=== PATIENT | female | born 1970 | race Caucasian/White ===

== ENCOUNTER → 2017-01-25 | Outpatient (CLI) | payer BC ==
[~2017-01-25] MED LIST: EFF75 PO; PRLSR20 PO; VENL150C56 PO
--- NOTE | 2017-01-25 14:20 | DIAGNOSTIC IMAGING REPORT ---
HEAD CT NONCONTRAST CT DOSE: HISTORY: B CELL LYMPHOMA TECHNIQUE: Multiaxial CT images of the head were performed without the use of intravenous contrast. Comparison: None. Findings: The paranasal sinuses and mastoid air cells are clear. The calvarium and skull base are intact. The ventricles and sulci are within normal limits. There is no mass, hematoma, midline shift, or acute infarct. Impression: No acute intracranial abnormality. Electronically signed by: Gómez Cardenas M.D. 01/25/2017 2:19 PM Dictated Date/Time: 01/25/2017 2:18 PM
--- NOTE | 2017-01-25 14:28 | DIAGNOSTIC IMAGING REPORT ---
CT OF THE NECK WITHOUT CONTRAST CLINICAL HISTORY: Cutaneous B-cell lymphoma. COMPARISON STUDY: PET/CT March 15, 2016. FINDINGS: A minimally enlarged right level 2 cervical lymph node shown on image 132 of 353 is similar to PET/CT of March 15, 2016. This node measures 1.3 x 1.2 cm. No additional enlarged cervical lymph nodes are identified. The parotid and submandibular glands are normal. Skin thickening of the left cheek shown on image 90 of 353 is similar to PET/CT of March 15, 2016. No mucosal lesions are identified although sensitivity is diminished on this unenhanced exam. No suspicious osseous lesions are present. The chest will be reported separately. The head CT will also be reported separately. Prominence of the tonsillar tissues is unchanged since prior PET/CT. IMPRESSION: 1. No significant change in a mildly enlarged right level 2 cervical lymph node since PET/CT of March 15, 2016. 2. No change in prominence of the tonsillar tissues since prior PET/CT. 3. Mild skin thickening of the left cheek which is similar to PET/CT of March 15, 2016. Electronically signed by: Haja Hagen M.D. 01/25/2017 2:26 PM Dictated Date/Time: 01/25/2017 2:16 PM
--- NOTE | 2017-01-25 14:33 | DIAGNOSTIC IMAGING REPORT ---
CT SCAN OF THE CHEST, ABDOMEN, AND PELVIS WITHOUT IV CONTRAST CLINICAL HISTORY: Cutaneous B cell lymphoma. COMPARISON STUDY: PET/CT dated 03/15/2016. TECHNIQUE: Unenhanced CT scan of the chest, abdomen, and pelvis was performed from the thoracic inlet to the proximal femora. Images are reviewed in the axial, sagittal, and coronal planes. IV contrast was not administered for this examination as per the referring clinician. Note that the examination is significant suboptimal without IV contrast. Oral contrast was utilized. Automated dose control exposure was utilized. CT DOSE: 2106.39 mGy.cm FINDINGS: CHEST: Thyroid: Imaged portions of the thyroid gland are normal in size and attenuation. Thoracic aorta: The thoracic aorta is normal in caliber and demonstrates standard 3-vessel arch anatomy. Heart: The heart is normal in size and configuration, and without pericardial effusion. The pulmonary trunk is normal in caliber. Lungs and pleural spaces: Mild paraseptal emphysematous change is seen at the lung apices. There is no airspace consolidation or pleural effusion. The trachea and central airways are clear. There is a 10 mm focus of nodular pleural thickening in the right middle lobe along the minor fissure seen on axial image #125. A 3 mm right lower lobe pulmonary nodule is seen on image #167. Mediastinum: There is no mediastinal lymphadenopathy. Jeanette: Clear. Axillae: There is no axillary lymphadenopathy. Bony thorax: No lytic or blastic lesions are identified. ABDOMEN AND PELVIS: Liver: The unenhanced liver is normal in size, contour, and attenuation. There is no intrahepatic or ductal dilatation. Gallbladder: Unremarkable. Spleen: Normal in size and attenuation measure 11.7 cm in length. Pancreas: Unremarkable. Adrenal glands: Unremarkable. Kidneys: The unenhanced kidneys are normal in size and without hydronephrosis. No renal calculi are identified. There is no evidence of contour deforming renal mass. Abdominal vasculature: The abdominal aorta is normal in course and caliber noting scattered foci of atherosclerotic calcification. Bowel: The small bowel and colon are normal in course and caliber. The appendix is well-visualized and normal. Peritoneum: There is no intraperitoneal free air or abdominal ascites. A small fat-containing umbilical hernia is noted. Lymphadenopathy: None. Pelvic viscera: The bladder and uterus are normal as visualized. Small ovarian follicles are observed. A 2.5 cm dermoid is noted in the left ovary. There is trace free fluid in the cul-de-sac. Skeletal structures: There is mild lumbosacral spondylosis. There are bilateral pars defects at L3 and L4. Grade 1 anterolisthesis is seen at L4-L5. No lytic or blastic lesions are seen. IMPRESSION: 1. Suboptimal examination without IV contrast. 2. No pathologically enlarged lymph nodes are identified in the chest, abdomen, or pelvis. 3. The spleen is normal in size. 4. There is no airspace consolidation or pleural effusion. 5. A 10 mm focus of pleural thickening in the right middle lobe and a 3 mm right lower lobe pulmonary nodule are identified and likely unchanged from 03/15/2016. These are of low suspicion. Continued attention at follow-up is recommended. 6. 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 7. There is trace and likely physiologic free fluid in the cul-de-sac. 8. Additional findings as above. Electronically signed by: Hugh Elizabeth M.D. 01/25/2017 2:32 PM Dictated Date/Time: 01/25/2017 2:17 PM
== END | disposition home or self-care (01) ==
LOC: C.CTS 13:42
PROVIDERS: ATTEND Dermatology
DX: C85.10 Unspecified B-cell lymphoma, unspecified site (principal); R91.1 Solitary pulmonary nodule; R91.8 Other nonspecific abnormal finding of lung field; D27.1 Benign neoplasm of left ovary

== ENCOUNTER → 2017-03-21 | Outpatient (CLI) | payer BC ==
--- NOTE | 2017-03-21 09:39 | DIAGNOSTIC IMAGING REPORT ---
PET/CT HISTORY: LYMPHOMA TECHNIQUE: PET/CT was performed from the base of the skull through the pelvis following the intravenous administration of mCi of F18-FDG. Non-contrast CT imaging was performed over the same range without breath-hold for attenuation correction of PET images and anatomic correlation, but not for primary interpretation as it is not of standard diagnostic quality. CT DOSE: COMPARISON: Neck, chest, abdomen and pelvis CT 01/25/2017. PET CT 03/15/2016. FINDINGS: HEAD AND NECK: Symmetric FDG uptake within the brain. Symmetric moderate FDG uptake within the bilateral palatine tonsils which measure an SUV max of 5.9. This is slightly improved. There is a focal area of skin thickening within the left cheek which demonstrates low level FDG uptake with an SUV max of 1 which has improved. The cervical and bilateral intraparotid lymph nodes are not significantly changed in size. However, these demonstrate decreased FDG uptake compared to the prior study. The dominant right level 2 lymph node which measures 1.3 x 0.9 cm demonstrates an SUV max of 1.7, previously measuring an SUV max of 3. CHEST: There is no FDG-avid disease in the chest. There is no axillary, mediastinal, or hilar lymphadenopathy. There is no pleural or pericardial effusion. There is no air-space disease or suspicious lung nodule. A 9 mm somewhat nodular density within the right middle lobe on image 82 remains stable. ABDOMEN/PELVIS: Below the diaphragm, tracer is distributed physiologically in the gastrointestinal and genitourinary tracts. There is no significant lymphadenopathy and no FDG-avid disease. There is a 2.2 cm fat-containing left adnexal lesion. MUSCULOSKELETAL: There is no FDG-avid or destructive bone lesion. IMPRESSION: 1. A focal area of skin thickening within the left cheek remains unchanged in size but demonstrates decreased FDG uptake compared to the prior study. 2. A a few cervical lymph nodes remain stable in size but demonstrate decreased FDG uptake. 3. No abnormal FDG uptake seen within the chest, abdomen, or pelvis. 4. A 2.2 cm fat-containing left adnexal lesion. This is consistent with an ovarian dermoid. This remains unchanged. 5. Moderate FDG uptake within the bilateral palatine tonsils has also improved. Electronically signed by: Martínez Arciniega M.D. 03/21/2017 9:37 AM Dictated Date/Time: 03/21/2017 9:21 AM
== END | disposition home or self-care (01) ==
LOC: C.PET 06:44
PROVIDERS: ATTEND Internal Medicine Hematology & Oncology
DX: C83.09 Small cell B-cell lymphoma, extranodal and solid organ sites (principal)

== ENCOUNTER → 2017-06-22 | Outpatient (CLI) | payer BC ==
[2017-06-22 09:19] VITALS: BP 115/63; PULSE 88; TEMP 37; O2SAT 97
--- NOTE | 2017-06-22 10:16 | Radiation Oncology Follow-Up ---
Radiation Oncology Follow-Up Date of Visit Jun 22, 2017. Reason For Visit One-month follow-up Radiation Completion Date 05/14/17 Diagnosis (1) Cutaneous lymphoma Status: Resolved Onset Date: 01/18/2016 Location: left cheek Permanent Comment: Excision of lesion left cheek 01/19/2016 Atypical lymphocytic infiltrate concerning for B-cell lymphoma Status post punch biopsy of the right submental area 02/25/2016 Atypical lymphocytic infiltrate Recurrence with enlarging mass left cheek December 2016 Last Edited By: Tamar Schultz on Mar 07, 2017 11:36 History of Present Illness Ms. Roy presented last year with a swelling in the left cheek. She was seen by Dr. Brannon who felt clinically that this could be consistent with a cyst. He ordered an excisional biopsy which was performed on 01/18/2016. This revealed an atypical lymphocytic infiltrate which was of concern for an early B-cell lymphoma, particularly marginal zone lymphoma and less likely follicular lymphoma. The differential diagnosis less likely included a reactive lymphocytic infiltrate "pseudolymphoma". Histopathologic and immunophenotypic features could not reliably distinguish between a primary cutaneous lymphoma from a secondary cutaneous involvement by systemic disease appropriate workup was recommended. Accession #: [id number]. According to the patient shortly after the excision within 2 weeks the patient felt that the nodule had returned. On further examination and abnormality was noted on the skin of the right jaw line. A punch biopsy was recommended and performed on 02/24/2016. This also showed an atypical lymphocytic infiltrate. This infiltrate was less dense in comparison and the immunohistochemical pattern was more suggestive of a reactive lymphocytic infiltrate and a B-cell lymphoma. Nonetheless given the history of a possible developing B-cell lymphoma on the contralateral cheek the current lesion may represent an early developing lesion of a lymphoproliferative disorder. Continue close surveillance was recommended. Accession #: [id number]. Dr. Brannon ordered a staging PET/CT scan which was performed on 03/15/2016. This revealed symmetric intense FDG uptake within the bilateral palatine tonsils which measures an SUV max of 7.5. There was a 1.6 cm focal area of skin thickening within the left cheek which demonstrated low level FDG uptake with an SUV max of 2. There was also low level FDG uptake within a single left cervical lymph node that measures 0.7 cm and an SUV max of 2.4. There were 2 right anterior cervical chain lymph nodes demonstrating low-level FDG uptake measuring 1.3 and 1.0 cm respectively with an SUV max of 2 and 3 respectively. There was no FDG avid disease in the chest and there was no FDG avid lesions below the diaphragm. There were no FDG avid or destructive bone lesions. The patient continued to be followed closely by Dr. Brannon. On 03/17/2016 the patient returned to see him and felt the lesion was getting a little larger. His measurements revealed a 0.8 cm dermal nodule in the right jawline and a 1.5 cm dermal nodule on the left cheek. He noted a negative PET CT workup. He injected Kenalog into the 2 sites in April, May and July 2016. These were injected into both sites with response of both. The right jawline has since responded and is not returned. However in November 2016 he was noted to again have a 1.5 cm dusky red non-scaly papular on the scar the left cheek with no palpable cervical adenopathy. An additional Kenalog injection was performed. Patient returned in December when the lesion appeared larger measuring 2 cm with no other lesions or adenopathy appreciated. Insurance approval for repeat PET/CT scan was soft. They refused to approve a PET/CT scan. They would approve CT scans but without contrast. Therefore on 01/25/[address] of the neck without contrast, CT of the head without contrast, CT of the chest, abdomen and pelvis all without contrast. These lesions continued to show a minimally enlarged right level II cervical lymph node which was similar in size to the original PET/CT scan from 03/15/2016. This measured 1.3 x 1.2 cm. No additional enlarged cervical nodes were identified. Parotid and submandibular cans were normal. There was again noted skin thickening of the left cheek similar to the PET/CT findings of 2016. No mucosal lesions were identified although sensitivity was diminished due to lack of enhancement. CT of the head was unremarkable. CT of the chest showed a 10 mm focus of nodular pleural thickening in the right middle lobe along the minor fissure and a 3 mm right lower lobe pulmonary nodule with no significant or suspicious adenopathy or bony involvement. CT of the abdomen and pelvis showed no pathologically enlarged lymph nodes. A 2.5 cm left ovarian desmoid was again noted with the lack of sensitivity again noted due to a lack of IV contrast. The patient was last seen on 02/26/2017. On examination she was noted to have a 2.2 x 2.0 irregularly-shaped dusky red non-scaling plaque on the left cheek with remainder the exam unremarkable. Dr. Brannon was kind enough to ask us to see the patient for consideration of local radiation. After completing a PET/CT she return to our office and underwent radiation therapy. She received 3600 cGy completed 05/14/2017. Interim History She's been doing well over the past month. While on treatments the nodularity of the cheek resolved. She did develop erythema and hyperpigmentation. She is continued to treat this with natural care gel and Aquaphor. There was some dryness of the skin. Very minimal dry desquamation. She had no wet desquamation. She has occasional mild itching. She did have discomfort towards the angle of the jaw and below the ear at the end of treatment. This resolved without difficulty. She recently traveled to the [facility]. She used sunscreen and did not have any burning on the face. She is using makeup now. The makeup that she use does have an SPF included. She denies any difficulty with soreness of the mouth. No difficulty with chewing. Her appetite is good and weight is stable. Allergies Coded Allergies: Egg Yolk (Verified Allergy, Severe, nausea, hives, sweating, headache, ) Aspirin (Verified Allergy, Unknown, unkown , 03/07/17) allergic since a baby Ibuprofen (Verified Allergy, Unknown, hallucinate, 03/07/17) high doses give hallucinations Home Medications Scheduled Omeprazole (Prilosec), 20 MG PO DAILY Venlafaxine Hcl (Effexor), 75 MG PO HS Venlafaxine Hcl (Effexor Extended Rel), 150 MG PO HS Review of Systems Gastrointestinal: Symptoms: WNL Oral: Symptoms: No Problems Respiratory: Symptoms: WNL Urinary: Symptoms: WNL Skin: Symptoms: No Problems Additional Notes: She completed a distress management report and answered "no" to all questions. Physical Exam Vital Signs Date Time Temp Pulse Resp B/P (MAP) Pulse Ox O2 Delivery O2 Flow Rate FiO2 06/22/17 09:19 37.0 88 20 115/63 97 ECOG Performance Status: 0 Fatigue: None General Appearance: no apparent distress, + pertinent finding (there is resolving hyperpigmentation of the left side of the face. There is no dryness of the skin. No desquamation. There are no palpable masses. There is no cervical or preauricular adenopathy. There is no supraclavicular adenopathy.) Eyes: normal inspection, EOMI ENT: normal ENT inspection, hearing grossly normal Neck: no adenopathy, thyroid normal Respiratory/Chest: lungs clear, no respiratory distress, no accessory muscle use Cardiovascular: regular rate, rhythm, no gallop, no murmur Extremities: no pedal edema Neurologic/Psychiatric: no motor/sensory deficits, alert, normal mood/affect Skin: warm/dry Pain Management Pain Rating (0-10): 0 Pain Management Plan She has no pain therefore requires no pain management. Assessment & Plan Plan: The patient is also seen today by Dr. Buitrago. I recommended that she continue using Aquaphor at bedtime to help prevent skin dryness. We discussed the hyperpigmentation. This will take several months to resolve. She'll continue to use the makeup with SPF. She'll continue regular follow-up with her primary care physician as well as medical oncologist. Recheck scanning will be planned through medical oncology. We asked to return to our office in 6 months. Assessment & Plan (Attending) ADDENDUM: I agree with note created by Tamar Schultz PA-C. I reviewed the patient's chart and information with her. I have examined and evaluated the patient. I reviewed relevant clinical information and answered the patient's and /or family's questions. COMPOSITE WORKER Total Time In Follow-Up I spent 20 minutes speaking to the patient performing examination. I spent 15 minutes reviewing information in completing this note. Total Time (Attending) In Follow-Up I spent 15 minutes examining and counseling the patient. COMPOSITE WORKER Copy To Gage Thornton D.O.; Wu Bustillo MD
== END | disposition home or self-care (01) ==
LOC: C.ONC 09:16
PROVIDERS: ATTEND Physician Assistant Medical
DX: Z08 Encounter for follow-up examination after completed treatment for malignant neoplasm (principal); Z92.3 Personal history of irradiation; Z85.72 Personal history of non-Hodgkin lymphomas

== ENCOUNTER 2024-07-04 15:58 | Inpatient (IN) ==
[2024-07-04 17:02] LABS: Basophils # (auto) 0.05 K/uL (0.00-0.20); Basophils % (auto) 0.4 %; Eosinophils # (auto) 0.97 K/uL (0.00-0.50); Eosinophils % (auto) 8.6 %; Hematocrit (blood only) 44.6 % (37.0-47.0); Hemoglobin 15.3 g/dl (12.0-16.0); Immature Granulocytes # (auto) 0.02 K/uL (0.01-0.20); Immature Granulocytes % (auto) 0.2 %; Lymphocytes # (auto) 3.62 K/uL (1.20-3.40); Lymphocytes % (auto) 32.1 %; Mean Corpuscular Hemoglobin 30.2 pg (25.0-34.0); Mean Corpuscular Hgb Conc 34.3 g/dL (32.0-36.0); Monocytes % (auto) 6.2 %; Neutrophils # (auto) 5.93 K/uL (1.40-6.50); Neutrophils % (auto) 52.5 %; Platelet Count 343 K/uL (130-400); RDW Coefficient of Variation 12.5 % (11.5-14.5); RDW Standard Deviation 40.1 fL (36.4-46.3); Red Blood Count 5.07 M/uL (4.20-5.40); White Blood Count 11.29 K/ul (4.8-10.8)
--- NOTE | 2024-07-04 17:12 | XRay Report ---
EXAM: Radiograph of the Chest 1 View INDICATION: Chest pain. TECHNIQUE: Frontal view of the chest. COMPARISON: 05/25/2023 FINDINGS: Lungs and pleural spaces: No consolidation or pulmonary edema. No pleural effusion or pneumothorax. Heart: Shape and configuration within normal limits allowing for technique. Mediastinum: Normal contour. Bones/joints: Degenerative changes noted throughout the spine. No acute osseous abnormality seen. Soft tissues: No abnormality noted. No radiopaque foreign body noted. Vasculature: Stable ectatic aorta. Upper abdomen: No abnormality noted. IMPRESSION: No acute cardiopulmonary disease. ACT 112: Negative or not required by law. Electronically signed by Betsy Julio 07-04-2024 5:11 PM
[2024-07-04 17:19] LABS: Albumin Globulin Ratio 1.4 (0.9-2); Albumin Level 4.3 gm/dl (3.4-5.0); Bilirubin,Total 0.2 mg/dl (0.2-1.0); Creatinine Clr Calc Pharmacy 113.9 ml/min; Globulin 3.1 gm/dl (2.5-4.0); Total Protein 7.4 gm/dl (6.0-8.3)
[2024-07-04 17:25] LABS: Troponin I High Sensitivity 3.6 pg/ml (0-14)
[2024-07-04 17:28] LABS: Partial Thromboplastin Time 28 Seconds (21-31); Prothrombin Time 10.6 Seconds (9.0-12.0)
--- NOTE | 2024-07-04 18:32 | Emergency Department Note ---
Impression & Plan Acute exacerbation of chronic obstructive pulmonary disease, Hypoxia ED Provider Note NAME: SHERYL BAUTISTA AGE: 54 SEX: F : 1970 ARRIVES VIA: Walk-In INFORMANT: Patient, ED PROVIDER(S): Felipe Harrell DO CHIEF COMPLAINT: Shortness of breath HPI: The patient is a 54-year-old female who presented to the emergency department for shortness of breath. She does have a history of tobacco use. She uses an inhaler. She started having difficulty breathing and cough over the course of the last several days. She was treated with a Z-Delfino. She was not treated with steroids. She was also treated with an inhaler. The patient was getting better but started getting worse over the course of the last few days. She went to see her family doctor today and was found to have significant wheezing as well as shortness of breath. She was also hypoxic. She was sent to the emergency department for further evaluation. ROS: See above HPI for pertinent positives & negatives. A total of 10 systems reviewed and were otherwise negative. PAST MEDICAL HISTORY: See Below PAST SURGICAL HISTORY: See Below FAMILY HISTORY: See Below SOCIAL HISTORY: See Below HOME MEDICATIONS: See Below ALLERGIES: See Below VITALS: See Below PHYSICAL EXAMINATION: GENERAL: Patient is awake alert in no acute distress patient is resting comfortably and showing no signs of anxiety EYES: The conjunctivae are clear. The pupils are round and reactive. EARS, NOSE, MOUTH AND THROAT: The nose is without any evidence of any deformity. Mucous membranes are moist. Tongue is midline. NECK: The neck is nontender and supple. RESPIRATORY: Diminished breath sounds are noted bilaterally. There is expiratory wheezing in both nielsen. There was conversational dyspnea as well as tachypnea noted. CARDIOVASCULAR: Regular rate and rhythm noted there no murmurs rubs or gallops normal S1 normal S2. GASTROINTESTINAL: The abdomen is soft. Abdomen is nontender. MUSCULOSKELETAL/EXTREMITIES: There is no evidence of gross deformity full range of motion is noted in the hips and shoulders. SKIN: There is no obvious evidence of any rash. There are no petechiae, pallor or cyanosis noted. NEUROLOGIC: Patient is awake alert and oriented x3 MEDICAL DECISION MAKING: The patient is a 54-year-old female who presented to the emergency department for an evaluation of difficulty breathing. The patient does have a history of tobacco use. The patient was treated with bronchodilator therapy in the emergency department. I discussed the patient's laboratory and radiographic studies with her. Given her vital signs as well as her other findings I do not feel that she would be a good candidate for outpatient management. For this reason I discussed her condition with the on-call [facility] hospitalist. They have agreed to evaluate the patient in the emergency department for further management and disposition. Triage Nursing notes reviewed. Prior medical records reviewed Vital Signs: reviewed and remarkable for elevated blood pressure and initial hypoxia. Differential diagnosis: Reactive airway disease, pneumonia, pneumothorax, COPD, CHF, infections, cardiac ischemia, pulmonary embolism, musculoskeletal, gastrointestinal, as well as other pathologies. ER treatment provided: See below Diagnostics interpreted by me: ECG: EKG was obtained in the emergency department. My interpretation is normal sinus rhythm at 90 bpm. There is no ectopy. There is no acute ST segment abnormalities noted. This was compared to a tracing from July 13, 2022. No changes were noted. Cardiac Monitoring: An order was placed for continuous cardiac monitoring. The monitor shows a rate of 84/min with sinus rhythm. Laboratory studies: As stated above and show below. Imaging studies: See below. Radiographic imaging was reviewed by myself Consultation(s): I discussed this case with Dr. Sanchez who is on-call for the [facility] group. 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) Encounter for pre-operative examination Cyst of skin Symptomatic cholelithiasis Medical History Hyperlipemia Per records Morbid obesity History of COVID-19 08/02/2020 loss of taste/smell, fatigue; resolved White coat syndrome without hypertension Fear of needles Acid reflux B-cell lymphoma dx 2018; s/p radiation Anxiety Surgical History Hx laparoscopic cholecystectomy (07/26/22) Robotic-Assisted Laparoscopic Cholecystectomy(Not Applicable) - Dimitris Schneider DO Hx of colonoscopy 2020 History of wisdom tooth extraction History of endometrial ablation 2012 History of bilateral breast reduction surgery 2017 History of tubal ligation 2002 Family History Father Cancer Heart disease Hypertension Diabetes Other No family history of adverse response to anesthesia No family history of bleeding disorder Social History Smoking Status: Current every day smoker Tobacco Type: Cigarettes packs per day: 0.5; Cigarettes Per Day: 20 a day (advised); Second Hand Exposure: No; Do You Dip or Chew Tobacco: No; Hx Alcohol Use: Yes Alcohol type: beer and hard liquor Alcohol Intake Frequency Comment: socially Hx Substance Use: No Preferred Language: Tongan Communication Ability: Effective Track Grinder Operator Required: No Beliefs That Will Affect Care: None marital status: Current Living Situation: Spouse current occupational status: employed 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 How many Children do You have: 2 Feels Safe at Home: Yes during the past year weight has: decreased > 10 lbs Assistive Devices: Glasses Allergies Allergies Allergy/AdvReac Type Severity Reaction Status Date / Time egg yolk Allergy Severe Nausea, Verified 07/04/24 18:39 hives, sweating, headache aspirin Allergy Intermediate Hives Verified 07/04/24 18:39 ibuprofen AdvReac Intermediate Hallucinations Verified 07/04/24 18:39 (with high doses) Home Meds Home Medications Medication Instructions Recorded Confirmed omeprazole 20 mg capsule,delayed 20 mg PO HS 04/30/19 07/04/24 release meloxicam 15 mg tablet 15 mg PO HS 07/04/24 07/04/24 tirzepatide (weight loss) 2.5 2.5 mg subcut WK 07/04/24 07/04/24 mg/0.5 mL subcutaneous pen injector (Zepbound) venlafaxine 150 mg 150 mg PO HS 07/04/24 07/04/24 capsule,extended release 24 hr venlafaxine 75 mg capsule,extended 75 mg PO HS 07/04/24 07/04/24 release 24 hr Results & Data (ED) Vital Signs Vital Signs - 24 hr 07/04/24 16:20 07/04/24 17:55 07/04/24 17:55 Temperature 36.8 C Temperature Source Temporal Artery Scan Pulse Rate 86 Pulse Rate [Apical] 93 H Respiratory Rate 18 21 Respiratory Effort / Characteristics Non-Labored Spontaneous SOB on Exertion Respiratory Depth Normal Respiratory Pattern Tachypnea Blood Pressure 176/107 H Blood Pressure [Left Arm] 161/108 H Blood Pressure Mean 130 Blood Pressure Mean [Left Arm] 125 Pulse Oximetry 92 90 90 Oxygen Delivery Method Room Air Room Air Room Air Oxygen Flow Rate Sepsis New/Unexplained Change in Mental Status No Sepsis Action Taken by Nursing No Action Required Oxygen Flow Rate - Titration Pulse Oximetry Post Tiitration 07/04/24 17:55 07/04/24 18:04 07/04/24 18:05 Temperature Temperature Source Pulse Rate 84 Pulse Rate [Apical] Respiratory Rate 18 Respiratory Effort / Characteristics Respiratory Depth Respiratory Pattern Blood Pressure Blood Pressure [Left Arm] Blood Pressure Mean Blood Pressure Mean [Left Arm] Pulse Oximetry 89 L 91 Oxygen Delivery Method Room Air Nasal Cannula Nasal Cannula Oxygen Flow Rate 1 Sepsis New/Unexplained Change in Mental Status Sepsis Action Taken by Nursing Oxygen Flow Rate - Titration 1 1 Pulse Oximetry Post Tiitration 92 07/04/24 18:13 07/04/24 19:00 Temperature Temperature Source Pulse Rate 90 Pulse Rate [Apical] 74 Respiratory Rate 18 Respiratory Effort / Characteristics Non-Labored Spontaneous Respiratory Depth Normal Respiratory Pattern Blood Pressure Blood Pressure [Left Arm] 163/103 H Blood Pressure Mean Blood Pressure Mean [Left Arm] 123 Pulse Oximetry 94 Oxygen Delivery Method Nasal Cannula Oxygen Flow Rate 2 Sepsis New/Unexplained Change in Mental Status Sepsis Action Taken by Nursing Oxygen Flow Rate - Titration Pulse Oximetry Post Tiitration Home Medications Current Medication List: was personally reviewed by me Laboratory Data Attestation: I reviewed the patient's lab results. 07/04/24 16:48 07/04/24 16:48 Lab Results 07/04/24 07/04/24 Range/Units 16:48 18:53 WBC 11.29 H (4.8-10.8) K/ul RBC 5.07 (4.20-5.40) M/uL Hgb 15.3 (12.0-16.0) g/dl Hct 44.6 (37.0-47.0) % MCV 88.0 (80.0-100.0) fL MCH 30.2 (25.0-34.0) pg MCHC 34.3 (32.0-36.0) g/dL RDW Std Deviation 40.1 (36.4-46.3) fL RDW Coeff of Jorge 12.5 (11.5-14.5) % Plt Count 343 (130-400) K/uL MPV 10.0 (9.4-12.4) fL Immature Gran % (Auto) 0.2 % Neut % (Auto) 52.5 % Lymph % (Auto) 32.1 % [place] % (Auto) 6.2 % Eos % (Auto) 8.6 % Baso % (Auto) 0.4 % Neut # (Auto) 5.93 (1.40-6.50) K/uL Lymph # (Auto) 3.62 H (1.20-3.40) K/uL [place] # (Auto) 0.70 H (0.11-0.59) K/uL Eos # (Auto) 0.97 H (0.00-0.50) K/uL Baso # (Auto) 0.05 (0.00-0.20) K/uL Immature Gran # (Auto) 0.02 (0.01-0.20) K/uL PT 10.6 (9.0-12.0) Seconds INR 1.0 (0.9-1.1) APTT 28 (21-31) Seconds PTT Ratio 1.0 Sodium 139 (136-145) mmol/L Potassium 4.0 (3.5-5.1) mmol/L Chloride 104 (98-107) mmol/L Carbon Dioxide 29 (21-32) mmol/L Anion Gap 6 (3-11) BUN 12 (6-23) mg/dl Creatinine 0.63 (0.6-1.2) mg/dl Est Cr Clr Drug Dosing 113.9 ml/min eGFR 106.67 BUN/Creatinine Ratio 19.0 (10-20) Glucose 90 (70-99(Fasting)) mg/dl Calcium 10.0 (8.6-10.3) mg/dl Total Bilirubin 0.2 (0.2-1.0) mg/dl AST 19 (13-39) U/L ALT 27 (7-52) U/L Alkaline Phosphatase 51 (34-104) U/L Troponin I High Sens 3.6 (0-14) pg/ml Total Protein 7.4 (6.0-8.3) gm/dl Albumin 4.3 (3.4-5.0) gm/dl Globulin 3.1 (2.5-4.0) gm/dl Albumin/Globulin Ratio 1.4 (0.9-2) Adenovirus (PCR) Not Detected (NotDetected) B. pertussis DNA (PCR) Not Detected (NotDetected) B.parapertussis DNA PCR Not Detected (NotDetected) C. pneumoniae DNA (PCR) Not Detected (NotDetected) Coronavirus OC43 (PCR) Not Detected (NotDetected) Coronavirus HKU1 (PCR) Not Detected (NotDetected) Coronavirus 229E (PCR) Not Detected (NotDetected) SARS-CoV-2 (PCR) Not Detected (NotDetected) Coronavirus NL63 (PCR) Not Detected (NotDetected) Human Metapneumovir PCR Not Detected (NotDetected) Influenza Type A (PCR) Not Detected (NotDetected) Influenza Type B (PCR) Not Detected (NotDetected) M. pneumoniae (PCR) Not Detected (NotDetected) Parainfluenza 1 (PCR) Not Detected (NotDetected) Parainfluenza 2 (PCR) Not Detected (NotDetected) Parainfluenza 3 (PCR) Not Detected (NotDetected) Parainfluenza 4 (PCR) Not Detected (NotDetected) RSV (PCR) Not Detected (NotDetected) Entero/Rhino (PCR) Not Detected (NotDetected) Administered Medications Budesonide (Budesonide 0.5 Mg/2 Ml Vial (Pulmicort)) 0.5 mg NEB BIDR [facility] Stop: 08/03/24 22:01 Last Admin: 07/04/24 22:37 Dose: 0.5 mg Documented By: JOLIE Formoterol Fumarate (Formoterol 20 Mcg/2 Ml Vial) 20 mcg NEB BIDR [facility] Stop: 08/03/24 22:01 Last Admin: 07/04/24 22:37 Dose: 20 mcg Documented By: JOLIE Guaifenesin (Guaifenesin 600 Mg Tabcr) 1,200 mg PO Q12 [facility] Stop: 08/03/24 22:01 Last Admin: 07/04/24 23:00 Dose: 1,200 mg Documented By: CLAIRE Meloxicam (Meloxicam 7.5 Mg Tab) 15 mg PO HS [facility] Stop: 08/03/24 22:01 Last Admin: 07/04/24 23:00 Dose: 15 mg Documented By: CLAIRE Pantoprazole Sodium (Pantoprazole 40 Mg Tab) 40 mg PO [facility] Stop: 08/03/24 22:14 Last Admin: 07/04/24 23:00 Dose: 40 mg Documented By: CLAIRE Venlafaxine HCl (Venlafaxine Hcl Xr 75 Mg Capxr) 75 mg PO [facility] Stop: 08/03/24 22:01 Last Admin: 07/04/24 23:00 Dose: 75 mg Documented By: CLAIRE Venlafaxine HCl (Venlafaxine Hcl Xr 150 Mg Capxr) 150 mg PO [facility] Stop: 08/03/24 22:01 Last Admin: 07/04/24 23:00 Dose: 150 mg Documented By: CLAIRE Discontinued Medications Albuterol (Albut/Ipratrop 3mg/0.5mg Neb 3 Ml Vial) 3 ml NEB NOW STA; Protocol Stop: 07/04/24 18:13 Last Admin: 07/04/24 18:47 Dose: 3 ml Documented By: SRL Dextromethorphan Polymer Complex (Dextromethorphan Polymr Complx 30 Mg/5 Ml Udp) 30 mg PO ONE ONE Stop: 07/04/24 20:45 Last Admin: 07/04/24 21:35 Dose: 30 mg Documented By: SAMANTHA Methylprednisolone (Methylprednisolone 125 Mg/2 Ml Vial) 125 mg IV NOW STA Stop: 07/04/24 18:13 Last Admin: 07/04/24 18:47 Dose: 125 mg Documented By: SRL Imaging Data Attestation: I personally reviewed and interpreted this imaging study as follows: My Impression: 1 view chest x-ray was obtained in the emergency department. My interpretation is no free air or definite infiltrate, final report below. Radiologist's Impression: Chest X-Ray 07/04/24 16:25 EXAM: Radiograph of the Chest 1 View INDICATION: Chest pain. TECHNIQUE: Frontal view of the chest. COMPARISON: 05/25/2023 FINDINGS: Lungs and pleural spaces: No consolidation or pulmonary edema. No pleural effusion or pneumothorax. Heart: Shape and configuration within normal limits allowing for technique. Mediastinum: Normal contour. Bones/joints: Degenerative changes noted throughout the spine. No acute osseous abnormality seen. Soft tissues: No abnormality noted. No radiopaque foreign body noted. Vasculature: Stable ectatic aorta. Upper abdomen: No abnormality noted. IMPRESSION: No acute cardiopulmonary disease. ACT 112: Negative or not required by law. Electronically signed by Betsy Julio 07-04-2024 5:11 PM Discharge Plan Visit Data Chief Complaint: Testing Request Stated Complaint: CHEST XRAY, O2 LOW ED Provider: Felipe Harrell Discharge Problem: Acute exacerbation of chronic obstructive pulmonary disease, Hypoxia Patient Disposition: Being Evaluated by Hospitalist
[2024-07-04] MEDS: ALBUT/IPRATROP 3MG/0.5MG NEB 3 ML VIAL NEB STA (18:47)
[2024-07-04] MEDS: methylPREDNISolone 125 MG/2 ML VIAL IV STA (18:47)
[2024-07-04 20:00] LABS: Adenovirus PCR Not Detected (NotDetected); Bordetella parapertussis PCR Not Detected (NotDetected); Bordetella pertussis PCR Not Detected (NotDetected); Chlamydia pneumoniae PCR Not Detected (NotDetected); Coronavirus 229E PCR Not Detected (NotDetected); Coronavirus CoV-2 (COVID19)PCR Not Detected (NotDetected); Coronavirus HKU1 PCR Not Detected (NotDetected); Coronavirus NL63 PCR Not Detected (NotDetected); Coronavirus OC43PCR Not Detected (NotDetected); Human Metapneumovirus PCR Not Detected (NotDetected); Influenza A PCR Not Detected (NotDetected); Influenza B PCR Not Detected (NotDetected); Mycoplasma pneumoniae PCR Not Detected (NotDetected); Parainfluenza Virus 1 PCR Not Detected (NotDetected); Parainfluenza Virus 2 PCR Not Detected (NotDetected); Parainfluenza Virus 3 PCR Not Detected (NotDetected); Parainfluenza Virus 4 PCR Not Detected (NotDetected); Respiratory Syncytial VirusPCR Not Detected (NotDetected); Rhinovirus/Enterovirus PCR Not Detected (NotDetected)
--- NOTE | 2024-07-04 20:39 | History & Physical Report ---
Date of Service July 04, 2024 Assessment & Plan (1) Reactive airway disease with acute exacerbation: Plan: Suspect underlying COPD with smoking history, encouraged smoking cessation Biofire negative although suspect initial precipitating event was viral, no pneumonia on CXR DuoNeb q4hWA Formoterol/budesonide nebs BID Solu-medrol 40mg IV daily Guaifenesin 1200mg PO BID Dextromethorphan PRN Antibiotics deferred for COPD exacerbation given recent course Sputum culture Do not anticipate needing repeat labs as long as she continues to improve (2) Hypoxia: Plan: Aim O2 sats > 90% Secondary to reactive airway disease as above Plan GERD - switch omeprazole for pantoprazole VTE Prophylaxis - low risk for chemical prophylaxis, SCDs ordered Diet - regular Disposition - admit to med/surg Admission and Anticipated Discharge Date Admission Date: July 04, 2024 History of Present Illness Chief Complaint: Shortness of breath Primary Care Provider: Neva Cooleylionel Roy is a 54 year old female who presents to the ER with shortness of breath She reports her initial symptoms started on July 21 with gener alized feeling unwell, sneezing, nasal congestion and productive cough with clear sputum. She felt generally terrible for about three days and went to her PCP office on . At that time she was not having the shortness of breath, more coughing and congestion. She was prescribed Augmentin, azithromycin (both antibiotics now finished), albuterol and tesslon perles. She felt better with these treatments initially. Her shortness of breath started yesterday and having increased problems sleeping. This became progressively worse despite the inhaler which was only mildly effective and short lived helped. She went to her follow up appointment today and was hypoxic therefore sent to the ER. She reports feeling much improved after steroids and nebulizers given in the ER and her chest feels much less tight and she can move air again. She is a current smoker on half a pack a day of cigarettes but no prior history of asthma or COPD. No chest pain, no recent fever or chills, nasal congestion coming and going, no sinus pain. Allergies Allergy/AdvReac Type Severity Reaction Status Date / Time egg yolk Allergy Severe Nausea, Verified 07/04/24 18:39 hives, sweating, headache aspirin Allergy Intermediate Hives Verified 07/04/24 18:39 ibuprofen AdvReac Intermediate Hallucinations Verified 07/04/24 18:39 (with high doses) Home Medications Medication Instructions Recorded Confirmed Type omeprazole 20 mg capsule,delayed 20 mg PO HS 04/30/19 07/04/24 History release meloxicam 15 mg tablet 15 mg PO HS 07/04/24 07/04/24 History tirzepatide (weight loss) 2.5 2.5 mg subcut WK 07/04/24 07/04/24 History mg/0.5 mL subcutaneous pen injector (Zepbound) venlafaxine 150 mg 150 mg PO HS 07/04/24 07/04/24 History capsule,extended release 24 hr venlafaxine 75 mg capsule,extended 75 mg PO HS 07/04/24 07/04/24 History release 24 hr Past Med/Surg History Problem List (Updated 07/04/24 @ 23:14 by Kaiden Sanchez MD) Reactive airway disease with acute exacerbation Hypoxia (Acute) Acute exacerbation of chronic obstructive pulmonary disease (Acute) Status post laparoscopic cholecystectomy 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) Encounter for pre-operative examination Cyst of skin Symptomatic cholelithiasis Medical History Hyperlipemia Per records Morbid obesity History of COVID-19 08/02/2020 loss of taste/smell, fatigue; resolved White coat syndrome without hypertension Fear of needles Acid reflux B-cell lymphoma dx 2018; s/p radiation Anxiety Surgical History Hx laparoscopic cholecystectomy (07/26/22) Robotic-Assisted Laparoscopic Cholecystectomy(Not Applicable) - Dimitris Schneider DO Hx of colonoscopy 2020 History of wisdom tooth extraction History of endometrial ablation 2012 History of bilateral breast reduction surgery 2018 History of tubal ligation 2002 Family History Father Cancer Heart disease Hypertension Diabetes Other No family history of adverse response to anesthesia No family history of bleeding disorder Social History Smoking Status: Current every day smoker Tobacco Type: Cigarettes packs per day: 0.5; Cigarettes Per Day: 1/2 pack; Second Hand Exposure: No; Do You Dip or Chew Tobacco: No; Tobacco Cessation Education Requested by Patient: No Hx Alcohol Use: Yes Alcohol type: beer Alcohol Intake Frequency Comment: socially Hx Substance Use: No Preferred Language: Divehi Communication Ability: Effective Process Equipment Operator Required: No Beliefs That Will Affect Care: None marital status: Current Living Situation: Spouse current occupational status: employed current occupation: AUTOMOTIVE GLASS MECHANIC How many Children do You have: 2 Feels Safe at Home: Yes Safety Concerns: Feels Safe At This Time during the past year weight has: decreased > 10 lbs Assistive Devices: Glasses Review of Systems Review of Systems: All systems reviewed & are unremarkable except as noted in HPI & below Physical Exam Constitutional: WD/WN, vitals as above Eyes: + anicteric sclerae; normal pupil size Respiratory: normal respiratory effort, + prolonged expiratory phase and + audible wheezes; no respiratory distress Auscultation: + wheezes (expiratory ); no diminished lung sounds, no crackles and no rhonchi Cardiovascular: RRR, no murmur, no edema Gastrointestinal (Abdomen): normal bowel sounds, soft, nontender, no hepatosplenomegaly Skin: no rashes, warm and dry Psychiatric: A+Ox3, euthymic affect Results & Data Results & Data Vital Signs (Past 12 Hours) Vital Signs Temp Pulse Pulse Resp BP BP Pulse Ox 07/04/24 19:00 74 18 163/103 H 94 07/04/24 18:13 90 07/04/24 18:05 07/04/24 18:04 91 07/04/24 17:55 84 18 89 L 07/04/24 17:55 90 07/04/24 17:55 93 H 21 161/108 H 90 07/04/24 16:20 36.8 C 86 18 176/107 H 92 O2 Del Method O2 Flow Rate 07/04/24 19:00 Nasal Cannula 2 07/04/24 18:13 07/04/24 18:05 Nasal Cannula 1 07/04/24 18:04 Nasal Cannula 07/04/24 17:55 Room Air 07/04/24 17:55 Room Air 07/04/24 17:55 Room Air 07/04/24 16:20 Room Air Laboratory Results Abnormal lab results 07/04/24 Range/Units 16:48 WBC 11.29 H (4.8-10.8) K/ul Lymph # (Auto) 3.62 H (1.20-3.40) K/uL [place] # (Auto) 0.70 H (0.11-0.59) K/uL Eos # (Auto) 0.97 H (0.00-0.50) K/uL Diagnostic Findings Radiograph of the Chest 1 View INDICATION: Chest pain. TECHNIQUE: Frontal view of the chest. COMPARISON: 05/25/2023 FINDINGS: Lungs and pleural spaces: No consolidation or pulmonary edema. No pleural effusion or pneumothorax. Heart: Shape and configuration within normal limits allowing for technique. Mediastinum: Normal contour. Bones/joints: Degenerative changes noted throughout the spine. No acute osseous abnormality seen. Soft tissues: No abnormality noted. No radiopaque foreign body noted. Vasculature: Stable ectatic aorta. Upper abdomen: No abnormality noted. IMPRESSION: No acute cardiopulmonary disease. Medications Administered ER Medications Given: Solu-medrol 125mg IV Duoneb 3ml NEB ECG Rate (beats per minute): 90 Rhythm: normal sinus Findings: no acute ischemic change Comparison ECG Date: from (July 13, 2022) Change: no significant change Code Status & VTE Plan Code Status Full VTE Prophylaxis Plan VTE Prophylaxis will be ordered: Yes PG Care Time/CCT Total # of Minutes Spent Total Time Spent with Patient: Total time spent is greater than 50% in coordination of care (as documented) at patient's floor/unit and/or counseling patient: Coding Level of Care Code 57951 INT INP/OBS CARE 2/55MIN Diagnoses Reactive airway disease with acute exacerbation J45.901 Hypoxia R09.02
[2024-07-04] MEDS: DEXTROMETHORPHAN POLYMR COMPLX 30 MG/5 ML UDP PO ONE (21:35)
[2024-07-04] MEDS ORDERED: ACETAMINOPHEN 325 MG TAB PO PRN (22:02)
[2024-07-04] MEDS: BUDESONIDE 0.5 MG/2 ML VIAL (PULMICORT) NEB SCH (22:37)
[2024-07-04] MEDS: FORMOTEROL 20 MCG/2 ML VIAL NEB SCH (22:37)
[2024-07-04] MEDS: guaiFENesin 600 MG TABCR PO SCH (23:00)
[2024-07-04] MEDS: MELOXICAM 7.5 MG TAB PO SCH (23:00)
[2024-07-04] MEDS: PANTOprazole 40 MG TAB PO SCH (23:00)
[2024-07-04] MEDS: VENLAFAXINE HCL XR 75 MG CAPXR PO SCH (23:00)
[2024-07-04] MEDS: VENLAFAXINE HCL XR 150 MG CAPXR PO SCH (23:00)
[2024-07-05] MEDS: DEXTROMETHORPHAN POLYMR COMPLX 30 MG/5 ML UDP PO PRN (02:56)
[2024-07-05] MEDS: ALBUT/IPRATROP 3MG/0.5MG NEB 3 ML VIAL NEB SCH (07:09)
[2024-07-05] MEDS: methylPREDNISolone 40 MG in SYRINGE 0 ML IV SCH ×2 (08:17→21:20)
[2024-07-05] MEDS ORDERED: methylPREDNISolone 125 MG/2 ML VIAL IV SCH (09:00)
--- NOTE | 2024-07-05 12:11 | Hospitalist Progress Note ---
Date of Service July 05, 2024 Assessment & Plan (1) Reactive airway disease with acute exacerbation: Plan: Suspect underlying COPD with smoking history, encouraged smoking cessation Biofire negative although suspect initial precipitating event was viral, no pneumonia on CXR Ambulatory pulse ox significant below goal DuoNeb q4hWA Formoterol/budesonide nebs BID Increase Solu-medrol 40mg IV BID Guaifenesin 1200mg PO BID Dextromethorphan PRN Codeine syrup PRN Start azithromycin for anti inflammatory effect Sputum culture pending Do not anticipate needing repeat labs as long as she continues to improve (2) Hypoxia: Plan: Aim O2 sats > 90% Secondary to reactive airway disease as above Plan GERD - switch omeprazole for pantoprazole VTE Prophylaxis - low risk for chemical prophylaxis, SCDs ordered Diet - regular Disposition - admit to med/surg Admission and Anticipated Discharge Date Admission Date: July 04, 2024 Supervising Physician Co-Signing Physician Notes Attending Physician Supervision Note: I independently interviewed and examined the patient and verified the ventura history and physical, reviewed labs and image studies and agree with findings and care plan noted above. RAD with acute exacerbation - continue current meds. anticipate d/c home in am. Subjective Patient seen and evaluated at bedside this morning. No acute events overnight. Remains on 3L NC, satting low 90s. No acute complaints, eager to go home. Review of Systems Review of Systems: reviewed, per HPI Physical Exam Physical Exam: Constitutional: well-appearing, no acute distress HEENT: NCAT, no conjunctival injection CV: regular rhythm, no murmur appreciated, extremities well-perfused, no LE edema Resp: diffuse inspiratory and expiratory wheeze in b/l lung nielsen, no increased WOB GI: nondistended MSK: no gross deformities appreciated Skin: warm, dry, no rash appreciated Neuro: alert, oriented, no focal neurologic deficit appreciated Results & Data Results & Data Vital Signs (Past 12 Hours) Vital Signs Temp Pulse Pulse Pulse Resp Resp BP 07/05/24 11:48 88 24 07/05/24 10:40 88 18 07/05/24 09:00 07/05/24 07:10 76 18 07/05/24 07:04 36.4 C L 74 17 157/97 H Pulse Ox Pulse Ox O2 Del Method O2 Flow Rate 07/05/24 11:48 83 L Room Air 07/05/24 10:40 92 Nasal Cannula 3 07/05/24 09:00 Nasal Cannula 2 07/05/24 07:10 93 Nasal Cannula 3 07/05/24 07:04 95 Nasal Cannula 2 Resident Activity Tracking Resident Involvement: Resident Care Provided Care Provided: Adult Hospital Medicine
[2024-07-05] MEDS: AZITHROMYCIN 250 MG TAB PO SCH (12:38)
[2024-07-05 19:42] VITALS: TEMP 97.9
--- OUTSIDE RECORDS SUMMARY | 2024-07-06 06:20 | External Medical Summary | Continuity of Care Document ---
Author Name Unknown Organization [facility] [address] [id number] Address [address] [place] [id number] Care Team Providers Care Pellet Preparation Operator Name Role Phone Neva Jones Primary Care Physician [phone] [facility] [id number] Date(s): 04/24/24 - 04/24/24 [facility] [place] [address] [facility] [address] [address] Encounter Diagnosis Hallux valgus, bilateral(Discharge Diagnosis) - 04/24/24 Hallux rigidus, bilateral(Discharge Diagnosis) - 04/24/24 Pain in both feet(Discharge Diagnosis) - 04/24/24 Arthritis of right midfoot(Discharge Diagnosis) - 04/24/24 Discharge Disposition: Home or Self Care Attending Physician: LIBERTY Morales Christina L Allergies, Adverse Reactions, Alerts Substance Criticality Severity Reaction Reaction Severity Status aspirin unknown Active Motrin 1 hallucinations Activ e eggs 2 hives Active 1high dose 2egg yolks Assessment and Plan Extracted from: Title:Orthopaedics Office Visit Note Author:Yakov Arreola DPM, Christina L Date:04/24/24 1.Hallux valgus, bilateral Discussed with patient today that for conservative treatment I recommendshe stop her ibuprofen, she notes in her allergies Motrin at high doses causes hallucinationshowever her on physical exam she stated to meshe takes 2 ibuprofen every morning I would like her to stop that and begin taking her meloxicam which was prescribed today. Recommend ultrasound-guided injection for the right foot at the first MPJand thefirst or second tarsometatarsal joint ordered today. Recommend orthotics to stabilize not just the feet but also the back and hip issueswe will check insurance coverage and consult placed today. We discussedpossible surgical intervention if needed if not improving with conservative treatmentof a cheilectomy versus a first MPJ fusiondefer at this time. Patient had no further questions or concerns x-rays reviewedrecommend follow- upin 2 to 3 months. I spent 6 minute planning including prepping note and chart review. I spent 31 minute [id number] interaction with patient addressing issuesdiscussed in visit today. I spent 8 minute time in postop visitplanning including note finishing in depart process. Total time spent on patient visit 45 minutes. 2.Hallux rigidus, bilateral 3.Pain in both feet 4.Arthritis of right midfoot Immunizations Given and Recorded Vaccine Date Status Refusal Reason influenza virus vaccine, inactivated 04/27/22 Give n influenza virus vaccine, inactivated 07/29/21 Give n influenza virus vaccine, inactivated 04/23/20 Give n influenza virus vaccine, inactivated 04/10/19 Give n influenza virus vaccine, inactivated 04/29/18 Give n pneumococcal 13-valent vaccine 04/30/19 Given pneumococcal 13-valent vaccine 1 04/10/19 Given pneumococcal 23-valent vaccine 04/29/18 Given 1Patient Tolerance: [04/14/2019 10:31] This vaccination was not given. Medications meloxicam 15 mg oral tablet Start: 04/24/24 8:36:00 AM EDT, 1 tab, PO, Daily, Disp# 90 tab, Refills: 3, Pharmacy: [id number] Start Date: 04/24/24 Stop Date: 04/19/25 Status: Ordered omeprazole 20 mg oral delayed release capsule Start: 03/28/24 1:10:00 PM EDT, 1 cap, PO, Daily, Disp# 90 cap, Refills: 2, Pharmacy: [id number] Start Date: 03/28/24 Status: Ordered varenicline 1 mg oral tablet Start: 06/27/23 1:33:00 PM EST, 1 tab, PO, bid, Disp# 168 tab, Refills: 0, Pharmacy: [id number] Start Date: 06/27/23 Stop Date: 09/19/23 Status: Ordered venlafaxine 150 mg oral capsule, extended release Start: 03/27/24 3:35:00 PM EDT, 1 cap, PO, Daily, Disp# 90 cap, Refills: 3, Pharmacy: [id number] Start Date: 03/27/24 Status: Ordered venlafaxine 75 mg oral capsule, extended release Start: 03/27/24 3:35:00 PM EDT, 1 cap, PO, Daily, Disp# 90 cap, Refills: 3, Pharmacy: [id number] Start Date: 03/27/24 Status: Ordered Vitamin D and K oral tablet Start: 06/13/22 8:47:00 AM EST Start Date: 06/13/22 Status: Ordered Mental Status 04/24/24 Barriers to Learning one year None evide nt Mandatory Health Literacy Documentation Yes Health Literacy Communication Barriers N ever Primary Language Iraqi Problem List Condition Confirmation Course Effective Dates Status H ealth Status Informant Anxiety Confirmed Active Arthritis of right midfoot Confirmed Active Hallux valgus, bilateral Confirmed Active Cyst of skin Confirmed 01/18/16 Active Right foot pain Confirmed Active Pain in both feet Confirmed Active Heartburn Confirmed Active Hx of breast reduction, elective Confirmed Active Hyperlipidemia Confirmed Active Lymphoma 1 Confirmed Active Skin lesion Confirmed Active Tobacco use Confirmed Active Tobacco user Confirmed Active Hallux rigidus, bilateral Confirmed Active 1b cell of the the left cheek Diagnosis Diagnosis Type Effective Dates Health Status Cl inical Service Informant Hallux valgus, bilateral Discharge Diagnosis 04/24/24 Non-Specified Hallux rigidus, bilateral Discharge Diagnosis 04/24/24 Non-Specified Pain in both feet Discharge Diagnosis 04/24/24 Non-Specified Arthritis of right midfoot Discharge Diagnosis 04/24/24 Non-Specified Procedures Procedure Date Related Diagnosis Body Site Status Mammogram 1 01/05/23 Completed Laparoscopic cholecystectomy 08/10/22 Completed US abdominal scan 2 06/14/[address] of abdomen and pelvis 3 03/25/[address] of chest 4 03/25/21 Completed Colonoscopy 5, 6 12/24/20 Complete d Excision 04/29/20 Completed Diagnostic mammogram 7 03/28/19 Co mpleted Pathology biopsy report 8, 9 03/28/19 Completed Breast reduction, bilateral 07/31/18 Completed Punch biopsy of skin 02/08/18 Comp leted Radiation 10 04/2017 Completed Mammogram - screening 09/20/16 Com pleted PAP test date 09/20/16 Completed Punch biopsy of skin 02/24/16 Comp leted Excision of cyst 01/18/16 Complete d ULTRASOUND BREAST COMPLETE 11 02/20/11 Completed Screening mammogram of bilat eral breasts 12 02/08/11 Completed Ablation 13 Completed Cone biopsy Completed Tubal ligation Completed 1There is no mammographic evidence of malignancy. A 1 year screening mammogram is recommended. 21. gallbladder sludge without cholelithiasis or sonographic evidence of acute cholecystitis 2. no biliary ductal dilation 3Impression: No lymphadenopathy identifed within the abdomen or pelvis. No change in the 2.5 cm left ovarian dermoid. 4Impression: No thoracic lymphadenopathy. No change in a few right lung nodules since CT of January 25, 2017. These are benign given stability. 5- one 3 mm polyp at the hepatic flexure, removed with a cold biopsy forceps. resected and retrieved. 6Pathology showed serrated polyp that is negative for dysplasia and malignancy. Repeat colo in 5 years. [id number]: Sin thickening and inflammatory changes in the right 5-8 o'clock breast on imaging in the region oferythema and tenderness pointed out by the patient. Given the clinical history and imaging findings, findings are most compatible with mastitis. A focal 3.8 cm fluid collectioin is seen within the right 7:00 breast concerning for abscess. There is no collection for further evaluation. Also recommend antibiotic treatment and clinical f/u to resolution of symptoms. Recommend 1 year screening mammogram. 8Amendment: 04/11/2019 : Microbiology results from the ultrasound-guied aspiration of a recurrent fluid collection in the lower outer quadrant of the right breast yielded: Many polys, moderate gram-positive cocci,moderate gram variable bacilli. Culture yielded diptheroids. These microbilogy results confirm the suspected breast abscess and continued clinical follow-up with extended antibiotic therapy is recommended. 9Breast, right, aspiration: 1. No malignant cells seen. 2. Abundant acute inflammatory cells present consistent with an abscess. 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 The dominant nodule on the mammogram at 2 o'clock in the left breast has indeterminantcharacteristics by US. It is likely to be a lymph node or fibroadenoma, ut i would ladvise a short-term f/u mammogram and upper outer quadrant left breast US in six months to establish stability 12A. A negative x-ray report should not delay biopsy if a dominant or clinically suspcious mass is present. Four to eight percent of cancers are not identified by x-ray. B. A negative report may reinforce clinical impression. C. Adenosis and dense breasts may obscure an underlying neoplasm. D. False positive report average six to 10 percent. 13uterine Vital Signs Most recent to oldest [Reference Range]: 1 Height 153.6 cm (04/24/24 8:02 AM) Patient Weight 107.0 kg (04/24/24 8:02 AM) Body Mass Index 45.35 kg/m2 (04/24/24 8:02 AM) Social History Social History Type Response Smoking Status Current some day lig ht smoker Sex Female Sex Representation Female (finding) Ortho Outpt Note * LIBERTY Morales Christina L: PERFORM Event Display: Ortho Outpt Note Authored Date: [id number] Primary Care Provider BABS Jones Tara Chief Complaint b/l bUNIONS History of Present Illness Patient is a very pleasant 54-year-old female presenting today for an initial evaluation of bilateralfoot pain secondary to bunions. 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 She experiences aher pain on both of her feet associated with her bunions joint and muscle pain which is consistent. But for the most part she feels that the more painful side is her right sideshe feels it starts at her foot sides and moves to the middle of her feet, patient states of being off her feetand icing her feetimproves the pain but walking will worsen the feet [facility]. Past medical historyanxiety heartburnbreast reduction hyperlipidemia lymphomaskin lesion tobacco user. Cancer Surgical historycholecystectomycolonoscopy excisionbreast reductionpunch biopsy. Medicationsreviewed. Allergiesreviewed. Social historycurrent every day smoker low alcohol risk. Family historycancer heart attack kidney disease suicide Review of Systems Depression and anxiety dry skin Physical Exam Vitals & Measurements HT:153.6cm WT:107.000kg(Dosing) WT:107.0kg BMI:45.35 Problem focused bilateral feet: Dorsalis pedis pulse palpable 2 out of 4,posterior tibial pulse palpable 2 out of 4,capillary refill time is less than 3 seconds,skin turgor is good to all digits of both feetpedal hair is present. Gross sensation intact all digits of both feet. Right foot is the more painful side she does have hallux valgus with hallux rigidusshe has a history of lower back pain sees chiropractor every other dayshe essentially has rotated hipand the right side kind of function/functionally shorter than the leftcreating this instability in the right great toe jointas a result she has also developed significant arthritis at the [id number] through 4thtarsometatarsal joint as well as at the talonavicular jointthese to her to most painful areas. Right first metatarsal phalangeal jointwith crepitus with active dorsiflexion and plantarflexion reduced dorsiflexion is noted with pain at end range of motion. Left footwith mild hallux valgus deformity and mild midfoot arthritic pain and again not as severe as the right. X-ray dictation 3 views bilateral feet: 3 views bilateral feetshow mild hallux valgus deformitybilaterally with sesamoids mildly deviated into the first interspace. Cystic changes noted to the first metatarsal headvery mild increase in first intermetatarsal angle very mild increase in hallux abductus angle. Lateral view of the right foot shows a very small dorsal exostosismidfoot arthritiswith inferior calcaneal heel spurand arthritis of the talus. Lateral view of the left foot showsvery minimal exostosis first metatarsal head and minimal midfoot arthritis. I personally performed the interpretation of 3 views of bilateral feet. Assessment/Plan 1.Hallux valgus, bilateral Discussed with patient today that for conservative treatment I recommendshe stop her ibuprofen,she notes in her allergies Motrin at high doses causes hallucinationshowever her on physical examshe stated to meshe takes 2 ibuprofen every morning I would like her to stop that and begin taking her meloxicam which was prescribed today. Recommend ultrasound-guided injection for the right foot at the first MPJand thefirst or secondtarsometatarsal joint ordered today. Recommend orthotics to stabilize not just the feet but also the back and hip issueswe will check insurance coverage and consult placed today. We discussedpossible surgical intervention if needed if not improving with conservative treatmentof a cheilectomy versus a first MPJ fusiondefer at this time. Patient had no further questions or concerns x-rays reviewedrecommend follow- upin 2 to 3 months. I spent 6 minute planning including prepping note and chart review. I spent 31 minute [id number] interaction with patient addressing issuesdiscussed in visit today. I spent 8 minute time in postop visitplanning including note finishing in depart process. Total time spent on patient visit 45 minutes. 2.Hallux rigidus, bilateral 3.Pain in both feet 4.Arthritis of right midfoot Problem List/Past Medical History Ongoing Anxiety Arthritis of right midfoot Cyst of skin Hallux rigidus, bilateral Hallux valgus, bilateral Heartburn Hx of breast reduction, elective Hyperlipidemia Lymphoma Pain in both feet Right foot pain Skin lesion Tobacco use Tobacco user Resolved B-cell lymphoma Tobacco user Tobacco user Tobacco user Procedure/Surgical History Mammogram| Service Date: 01/05/2023Laparoscopic cholecystectomy| Service Date: 08/10/2022US abdominal scan| Service Date: 2CT of chest| Service Date: 03/25/2021T of abdomen and pelvis| Service Date: 03/25/2021olonoscopy| Service Date: 12/24/2020xcision| Service Date: 04/29/2020Diagnostic mammogram| Service Date: 03/28/2019Pathology biopsy report| Service Date: 03/28/2019Breast reduction, bilateral| Service Date: 07/31/2018Punch biopsy of skin| Service Date: 02/08/2018Radiation| Service Date: 04/2017Mammogram - screening| Service Date: 09/20/2016PAP test date| Service Date: 09/20/2016Punch biopsy of skin| Service Date: 02/24/2016Exci antoinette of cyst| Service Date: 01/18/2016ULTRASOUND BREAST COMPLETE| Service Date: 02/20/2011Screening mammogram of bilateral breasts| Service Date: 02/08/2011blationCone biopsyTubal ligation Medications meloxicam(meloxicam 15 mg oral tablet), 15 mg= 1 tab, PO, Daily, 3 refills multivitamin(Vitamin D and K oral tablet) omeprazole(omeprazole 20 mg oral delayed release capsule), 1 cap, PO, Daily varenicline(varenicline 1 mg oral tablet), 1 tab, PO, bid venlafaxine(venlafaxine 150 mg oral capsule, extended release), 1 cap, PO, Daily venlafaxine(venlafaxine 75 mg oral capsule, extended release), 1 cap, PO, Daily Allergies Motrinhallucinations aspirinunknown eggshives Social History Smoking Status Current some day light smoker Alcohol - Low Risk Frequency:1-2 times per month 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 Heart attack: Father. Kidney disease: Father. Suicide: Mother.Negative: Father, Sister, Brother and Unknown. Unknown: Brother. Health Status Family Member(s) Family Member(s) Relationship: Mother, Age: 32 Years Relationship: Father, Age: 51 Years Relationship: Brother, Age: Unknown Immunizations Vaccine Date Status influenza virus vaccine, inactivated 04/27/2022 Given influenza virus vaccine, inactivated 07/29/2021 Given influenza virus vaccine, inactivated 04/23/2020 Given pneumococcal 13-valent vaccine 04/30/2019 Given influenza virus vaccine, inactivated 04/10/2019 Given pneumococcal 13-valent vaccine 04/10/2019 Given Comments : [04/14/2019 10:31] This vaccination was not given. influenza virus vaccine, inactivated 04/29/2018 Given pneumococcal 23-valent vaccine 04/29/2018 Given Recommendations Health Maintenance Pending(in the next year) OverDue Adult Influenza Vaccine due01/20/24and every 1year Due Adult COVID-19 Vaccination due04/24/24Unknown Frequency Adult Social Determinants of Health Screening due04/24/24Unknown Frequency Adult Tdap/Td Vaccine due04/24/24Unknown Frequency Hepatitis C Screening due04/24/24One-time only Pneumococcal Vaccine Adults and Adolescents with Chronic Illness due04/24/24One-time only Shingles Vaccine due04/24/24One-time only Satisfied(in the past 1 year) Satisfied Body Mass Index on04/24/24.Satisfied by YONIS Nascimento [place] Breast Cancer Screening on01/18/24.Satisfied by BELLE De La Paz [facility] Lipid Screening on05/18/23.Satisfied by Contributor_system, [employer] Electronic Signature on File Electronically Reviewed/Signed by: Audrey Morales DPM Author Signature Dt/Tm:04/24/2024 08:44 AM Division of Sports Medicine CLR Patient Care team information Care Team Personnel Name: BABS Jones Tara Position: Nurse Pract - Family Med Member Role: Primary Care Provider Address: [address] [place] [address], [place] [address] Care Team Related Persons Name: RUBINA BAUTISTA Name: RUBINA BAUTISTA Name: RUBINA BAUTISTA"
--- OUTSIDE RECORDS SUMMARY | 2024-07-06 06:20 | External Medical Summary | Continuity of Care Document ---
Author Name Unknown Organization [address] [id number] Care Team Providers Care Life Sciences Instructor Name Role Phone Neva Jones Primary Care Physician [phone] [facility] [id number] Date(s): 06/24/24 - 06/24/[address] [address] [phone] Encounter Diagnosis Right lower lobe pneumonia(Discharge Diagnosis) - 06/24/24 Wheezing(Discharge Diagnosis) - 06/24/24 Tobacco use(Discharge Diagnosis) - 06/24/24 Discharge Disposition: Home or Self Care Attending Physician: DO Reynoso Jona M Allergies, Adverse Reactions, Alerts Substance Criticality Severity Reaction Reaction Severity Status aspirin unknown Active Motrin 1 hallucinations Activ e eggs 2 hives Active 1high dose 2egg yolks Immunizations Given and Recorded Vaccine Date Status Refusal Reason influenza virus vaccine, inactivated 05/09/24 Give n influenza virus vaccine, inactivated 04/27/22 Give n influenza virus vaccine, inactivated 07/29/21 Give n influenza virus vaccine, inactivated 04/23/20 Give n influenza virus vaccine, inactivated 04/10/19 Give n influenza virus vaccine, inactivated 04/29/18 Give n pneumococcal 13-valent vaccine 04/30/19 Given pneumococcal 13-valent vaccine 1 04/10/19 Given pneumococcal 23-valent vaccine 04/29/18 Given 1Patient Tolerance: [04/14/2019 10:31] This vaccination was not given. Medications Albuterol (Eqv-ProAir HFA) 90 mcg/inh inhalation aerosol Start: 06/24/24 4:50:00 PM EST, 2 inh, inhaled, q6h, Disp# 1 each, PRN: as needed for shortness of breath or wheezing, Pharmacy: [id number] Start Date: 06/24/24 Status: Ordered Augmentin 875 mg-125 mg oral tablet Start: 06/24/24 4:49:00 PM EST, amoxicillin 1 tab, PO, q12h, Disp# 14, Pharmacy: [facility][id number] Start Date: 06/24/24 Stop Date: 07/01/24 Status: Ordered Azithromycin 5 Day Dose Pack 250 mg oral tablet Start: 06/24/24 4:50:00 PM EST, 2 tab, PO, Daily, Disp# 6 tab, Take 2 pills PO day 1 then 1 pill daily for 4 days., [id number] Start Date: 06/24/24 Stop Date: 06/29/24 Status: Ordered meloxicam 15 mg oral tablet Start: 04/24/24 8:36:00 AM EDT, 1 tab, PO, Daily, Disp# 90 tab, Refills: 3, Pharmacy: [facility] #[id number] Start Date: 04/24/24 Stop Date: 04/19/25 Status: Ordered omeprazole 20 mg oral delayed release capsule Start: 03/28/24 1:10:00 PM EDT, 1 cap, PO, Daily, Disp# 90 cap, Refills: 2, Pharmacy: [facility] [id number] Start Date: 03/28/24 Status: Ordered Tessalon 200 mg oral capsule Start: 06/24/24 4:50:00 PM EST, 1 cap, PO, tid, Disp# 30 cap, PRN: as needed for cough, [id number] Start Date: 06/24/24 Status: Ordered varenicline 0.5 mg oral tablet Start: 05/09/24 8:34:00 AM EDT, See Instructions, Disp# 11 tab, take one tab po qd for 3 days then bid for 4 days., [id number] Start Date: 05/09/24 Status: Ordered varenicline 1 mg oral tablet Start: 05/09/24 8:33:00 AM EDT, 1 tab, PO, bid, Disp# 168 tab, Refills: 1, start after completion of 0.5mg dose, [id number] Start Date: 05/09/24 Stop Date: 10/24/24 Status: Ordered venlafaxine 150 mg oral capsule, extended release Start: 03/27/24 3:35:00 PM EDT, 1 cap, PO, Daily, Disp# 90 cap, Refills: 3, Pharmacy: [id number] Start Date: 03/27/24 Status: Ordered venlafaxine 75 mg oral capsule, extended release Start: 03/27/24 3:35:00 PM EDT, 1 cap, PO, Daily, Disp# 90 cap, Refills: 3, Pharmacy: [id number] Start Date: 03/27/24 Status: Ordered Zepbound Pen 2.5 mg/0.5 mL subcutaneous solution Start: 06/13/24 3:35:00 PM EST, 2.5 mg =, subQ, q7days, Disp# 2 mL, Pharmacy: [id number] Start Date: 06/13/24 Status: Ordered Mental Status 06/24/24 Barriers to Learning one year None evide nt Mandatory Health Literacy Documentation Yes Health Literacy Communication Barriers N ever Primary Language Guyanese Problem List Condition Confirmation Course Effective Dates Status H ealth Status Informant Anxiety Confirmed Active Arthritis of right midfoot Confirmed Active Hallux valgus, bilateral Confirmed Active Body mass index [BMI] 45.0-49.9, adult Confirmed Active Cyst of skin Confirmed 01/18/16 Active Right foot pain Confirmed Active Pain in both feet Confirmed Active Heartburn Confirmed Active Hx of breast reduction, elective Confirmed Active Hyperlipidemia Confirmed Active Impaired fasting glucose Confirmed Active Lymphoma 1 Confirmed Active Skin lesion Confirmed Active Tobacco use Confirmed Active Tobacco user Confirmed Active Hallux rigidus, bilateral Confirmed Active 1b cell of the the left cheek Diagnosis Diagnosis Type Effective Dates Health Status Cl inical Service Informant Wheezing Discharge Diagnosis 06/24/24 Non-Specified Right lower lobe pneumonia Discharge Diagnosis 06/24/24 Non-Specified Tobacco use Discharge Diagnosis 06/24/24 Non-Specified Procedures Procedure Date Related Diagnosis Body [...] and malignancy. Repeat colo in 5 years. [id number]: Sin thickening and inflammatory changes in the [...] Most recent to oldest [Reference Range]: 1 Patient Weight 105.8 kg (06/24/24 4:10 PM) Temperature [36.5-37.9 DegC] 36.6 DegC (06/24/24 4:10 PM) Heart Rate 74 bpm (06/24/24 4:10 PM) Respiratory Rate 18 br/min (06/24/24 4:10 PM) Blood Pressure 134/84mmHg (06/24/24 4:10 PM) Cuff Pulse Pressure 50 mmHg (06/24/24 4:10 PM) Social History Social History Type Response Smoking Status Current every day li ght smoker Sex Female Sex Representation Female (finding) Patient Care team information Care Team Personnel Name: BABS Jones Tara Position: Nurse Pract - Family Med Member Role: Primary Care Provider Address: [address] [place] [id number] [place] Care Team Related Persons Name: RUBINA BAUTISTA Name: RUBINA BAUTISTA Name: RUBINA BAUTISTA
--- OUTSIDE RECORDS SUMMARY | 2024-07-06 06:20 | External Medical Summary | Continuity of Care Document ---
Author Name Unknown Organization [address] [id number] Care Team Providers Care Disability Examiner Name Role Phone Neva Jones Primary Care Physician [phone] [facility] [id number] Date(s): 05/09/24 - 05/09/[address] [address] [phone] Encounter Diagnosis Lymphoma(Discharge Diagnosis) - 05/09/24 Tobacco use(Discharge Diagnosis) - 05/09/24 PE (physical exam), annual(Discharge Diagnosis) - 05/09/24 Hyperlipidemia(Discharge Diagnosis) - 05/09/24 Body mass index [BMI] 45.0-49.9, adult(Discharge Diagnosis) - 05/09/24 Impaired fasting glucose(Discharge Diagnosis) - 05/09/24 Discharge Disposition: Home or Self Care Attending Physician: BABS Jones Tara Referring Physician: BABS Jones Tara Allergies, Adverse Reactions, Alerts Substance Criticality Severity Reaction Reaction Severity Status aspirin unknown Active Motrin 1 hallucinations Activ e eggs 2 hives Active 1high dose 2egg yolks Assessment and Plan Extracted from: Title:CPE Author:BABS Jones Tara Date: 1.PE (physical exam), lamonte al Will give egg free influenza vaccine Preventative health screening recommendations Cervical Cancer Screening Starting at age 21-25, pap test q 3years.Age 30-65may have pap and HPV testing q5 years or just a pap q3 years. Testing shouldstop after age 65unless high risk, immunocompromised or cancer survivor. (A, USPSTF. ACOG) Folic Acid All females capable of . 400-800 micrograms daily (A, USPSTF) Breast Cancer Screening Ages 50-74 q2 years (B, USPSTF). < 50 y/o based on patient risk (C, USPSTF). The USPSTF recommends AGAINSTteaching women the breast self-exam, instead recommending breast awareness without examination. Osteoporosis screening -Over age 65, and in younger women with risk factors. FRAX tool can be used to assess risk.http://www.shef.ac.uk/FRAX/tool.jsp Colorectal cancer screening -starting at age 45if there is no family hx (A, USPSTF, AAFP) - colonoscopy q10 yrs, flex sig q5 yrs, FIT testing yearly, cologuard every 3 years -Age 75 and olderscreening isnotrecommended unless there is cause for increased suspicion -Patient's with 1st degree relativeswith early onset colon CA should be screenedearlier than 50 Lipid screening -age 35and older unless at risk for CV disease, thenage 20(A, AAFP) Fasting glucose screening - Pts w/ sustained (treated or not) HTN of > 135/80 (B, AAFP/USPSTF), h/o hyperlipidemia or HTN (Cuban), or risk based screening (ADA) Obesity -BMI > 30should be referred for "intensive, multicomponent behavioral interventions" - but everyone should have lifestyle modifications encouraged Further recommendations can be found at the AAFP's yearly published CPS recommendations summary http://www.aafp.org/dam/AAFP/documents/patient_care/clinical_recommendations /cps-recommendations.pdf or athttp://www.uspreventiveservicestaskforce.org/ Vaccination recommendations Td/Tdap: substitute 1 time dose of Tdap w/ Td booster then Td q10 years HPV: ages 11 to 21, ideally. May vaccinate up to 26. 3 dose series @ 0, 1-2 and 6 months HepB: indicated in: non-monogamous sexually active persons, IVDA, STD pts, MSM, healthcare workers, diabetics < 60 y/o (> 60 if at risk), ESRD. 3 dose series @ 0, 1, 3 months PCV-13:immunocompromised/asplenic pts > 19 y/o. Separate from PCV-23 by at least 1 year before/ 8 wks after PCV-23: all adults > 65 y/o. Adults < 65 y/o w/ chronic lung dz, CV dz, DM, CRF, liver disease, alcoholism immunocompromised states, residents of [place]/LT[place], and SMOKERS. Re-vaccinate 1 time after 5 years. PCV20 instead of PCV23/13 Shingrix:adults > 50 y/o (regardless of previous exposure) Flu:yearly in patients > 6 months. Egg free in adults 18-49. RSV: ?60 years of age and have comorbidities that put them at increased risk for severe disease Further vaccine recommendations can be found athttp://www.cdc.gov/vaccines/schedules/hcp/adult.html and there's an alek. 2.Hyperlipidemia Acute/Chronic: chronic Goal:Resolution/ control Status:stable/controlled Data: records/pt report Plan: Will check lipid panel. Recommend Med diet and 30 min of exercise 5-7 days a week. 3.Lymphoma Acute/Chronic: chronic Goal:Resolution/ control Status:stable/controlled Data: records/pt report Plan: No B symptoms. No redflags.Red flags include:overwhelming fatigue not explained by other cause, increasing or development of shortness of breath, new onset back pain not explained by other cause, new onset headaches not explained by other cause, new onset bloating/abdominal pain, unexplained weight loss, decrease appetite, earlier satiety, bleeding, skin changes. Contd follow up with onc and derm. 4.Tobacco use Acute/Chronic: chronic Goal:Resolution/ control Status:stable/controlled Data: records/pt report Plan: Will send in rxfor chantix.Will also order CT lung ca screening. 5.Impaired fasting glucose Acute/Chronic: chronic Goal:Resolution/ control Status:stable/controlled Data: records/pt report Plan: Will check hgba1c. Recommend Med diet and 30 min of exercise 5-7 days a week. 6.Body mass index [BMI] 45.0-49.9, adult Acute/Chronic: chronic Goal:Resolution/ control Status:stable/controlled Data: records/pt report Plan: Discussed pros and cons of wegovy/zepbound. Discussed side effects. Still need to participate in routine exercise and dietary modification. Would like to proceed. Will start on zepbound2.5mg weekly. Advised to call when has taken 4th dose and let us know if wants to go up to next dose. If able to get with insurance will follow up in 2 mo. Immunizations Given and Recorded Vaccine Date Status [...] Daily, Disp# 90 tab, Refills: 3, Pharmacy: [facility]/pharmacy #[id number] Start Date: 04/24/24 Stop Date: 04/19/25 Status: Ordered omeprazole 20 mg oral delayed release capsule Start: 03/28/24 1:10:00 PM EDT, 1 cap, PO, Daily, Disp# 90 cap, Refills: 2, Pharmacy: [facility] [id number] Start Date: 03/28/24 Status: Ordered varenicline 0.5 mg oral tablet Start: 05/09/24 8:34:00 AM EDT, See Instructions, Disp# 11 tab, take one tab po qd for 3 days then bid for 4 days., Pharmacy: [facility]/pharmacy #[id number] Start Date: 05/09/24 Status: Ordered varenicline 1 mg oral tablet Start: 05/09/24 8:33:00 AM EDT, 1 tab, PO, bid, Disp# 168 tab, Refills: 1, start after completion of 0.5mg dose, Pharmacy: [facility]/pharmacy #[id number] Start Date: 05/09/24 Stop Date: 10/24/24 Status: Ordered venlafaxine 150 mg oral capsule, extended release Start: 03/27/24 3:35:00 PM EDT, 1 cap, PO, Daily, Disp# 90 cap, Refills: 3, Pharmacy: [facility] [id number] Start Date: 03/27/24 Status: Ordered venlafaxine 75 mg oral capsule, extended release Start: 03/27/24 3:35:00 PM EDT, 1 cap, PO, Daily, Disp# 90 cap, Refills: 3, Pharmacy: [id number] Start Date: 03/27/24 Status: Ordered Zepbound 2.5 mg/0.5 mL subcutaneous solution Start: 05/09/24 8:19:00 AM EDT, 2.5 mg =, subQ, q7days, Disp# 1 kit, Refills: 1, Inject 2.5 mg SQ every 7 days X 4 weeks then increase to 5 mg every 7 days, Pharmacy: [facility]/pharmacy #[id number] Start Date: 05/09/24 Status: Ordered Mental Status 05/09/24 Barriers to Learning one year None evide nt Mandatory Health Literacy Documentation Yes Health Literacy Communication Barriers N ever Primary Language Mauritanian Problem List Condition Confirmation Course Effective Dates [...] Diagnosis Diagnosis Type Effective Dates Health Status Clinical Service Informant Impaired fasting glucose Discharge Diagnosis 05/09/24 Non-Specified Body mass index [BMI] 45.0-49.9, adult Discharge Diagnosis 05/09/24 Non-Specified Lymphoma Discharge Diagnosis 05/09/24 Non-Specified Tobacco use Discharge Diagnosis 05/09/24 Non-Specified PE (physical exam), annual Discharge Diagnosis 05/09/24 Non-Specified Hyperlipidemia Discharge Diagnosis 05/09/24 Non-Specified Procedures Procedure Date Related Diagnosis Body [...] and malignancy. Repeat colo in 5 years. [id number]: Sin thickening and inflammatory changes in the [...] recent to oldest [Reference Range]: 1 Height 154 cm (05/09/24 7:48 AM) Patient Weight 107.4 kg (05/09/24 7:48 AM) Body Mass Index 45.29 kg/m2 (05/09/24 7:48 AM) Temperature [36.5-37.9 DegC] 37.1 DegC (05/09/24 7:48 AM) Heart Rate 74 bpm (05/09/24 7:48 AM) Respiratory Rate 17 br/min (05/09/24 7:48 AM) Blood Pressure 134/78mmHg (05/09/24 7:48 AM) Cuff Pulse Pressure 56 mmHg (05/09/24 7:48 AM) Social History Social History Type Response Smoking Status Current some day lig ht smoker Sex Female Sex Representation Female (finding) FCM Outpt Note * BABS Jones Tara: PERFORM Event Display: FCM Outpt Note Authored Date: [id number] Chief Complaint CPE. Discuss weight loss medication and smoking cessation. History of Present Illness exercise not regularly due to foot but is going to start back diet fair eye exam UTD dentist UTD screenings col 2025, pap , mammo utd. Lung ct due vaccinesinfluenzatoday etoh socially smoking still smoking but wants to restart chantix. Started on meloxicamfor feet with good relief. Wants to start back on chantix. She is also asking about weight loss meds. Has onc apptthis month and derm appt in Jun. No night sweats, fevers, unintentional weight loss. (No B symptoms). Review of Systems Constitutional: No fever, chills, sweats EENT:No vision change, eye pain, rhinorrhea, sinus pain, epistaxis, dysphagia, change in hearing,tinnitus, vertigo, oral ulcers or lesions. Pulmonary: No shortness of breath, dyspnea with exertion, cough, hemoptysis, wheezing, chest pain. Cardiovascular: No chest pain, palpitations, syncope, edema, cyanosis, claudication, orthopnea. GI: No nausea, vomiting, diarrhea, melena, hematochezia, change in appetite, abdominal pain, changein bowel habits or stools Musculoskeletal: No joint swelling or pain, muscle pain, back pain Neurologic: No headache, lightheadedness, dizziness, Psychiatric: No depression, anxiety, Dermatologic: No rash, new/growing/changing skin lesions Endocrine: No weight change, heat or cold intolerance, tremor, insomnia, polyuria, polydipsia, polyphagia, abnormal hair growth, change in nails Physical Exam Vitals & Measurements T:37.1C HR:74(Monitored) RR:17 BP:134/78 SpO2:96% HT:154cm WT:107.400kg(Dosing) WT:107.4kg BMI:45.29 PHQ2 Data(Data Documented on:05/09/2024 07:48) Emotional health assessment NEGATIVE head- normocephalic eyes- PERRLA , conjunctiva clear, sclera white, anicteric, ears- TM's non-injected, good light reflex, no protrusion or retraction nose -nares patent, no sinus pressure throat- pharynx non erythematous, no exudate, no masses mouth- buccal mucosa, moist and intact, dentition intact, neck-no lymphadenopathy, masses, or thyromegaly, +carotid pulses, no bruits, trachea midline Pulmonary- chest expansion symmetric, CTA (clear to auscultation), eupnea, no adventitious sounds (rales, crackles, wheezes) CV (cardiovascular)- RRR no m/r/g (systolic ejection murmur, rubs, gallops), good peripheral perfusion abdomen- soft non-tender w/o masses, BS present, no hepatosplenomegaly, no bruits extremitiesNo edema or erythema. pulses present skin-good turgor w/o lesions, redness, cyanosis, edema nails- no clubbing or deformities w good cap refill Neuro:Alert, Oriented Psy:no homicidal or suicidal ideations. Assessment/Plan 1.PE (physical exam), annual Will give egg free influenza vaccine Preventative health screening recommendations Cervical Cancer Screening Starting at age 21-25, pap test q 3years.Age 30-65may have pap and HPV testing q5 years or just a pap q3 years. Testing shouldstop after age 65unless high risk, immunocompromised or cancer survivor. (A, USPSTF. ACOG) Folic Acid All females capable of . 400-800 micrograms daily (A, USPSTF) Breast Cancer Screening Ages 50-74 q2 years (B, USPSTF). < 50 y/o based on patient risk (C, USPSTF). The USPSTF recommends AGAINSTteaching women the breast self-exam, instead recommending breast awareness without examination. Osteoporosis screening -Over age 65, and in younger women with risk factors. FRAX tool can be used to assess risk.http://www.shef.ac.uk/FRAX/tool.jsp Colorectal cancer screening -starting at age 45if there is no family hx (A, USPSTF, AAFP) - colonoscopy q10 yrs, flex sig q5 yrs, FIT testing yearly, cologuard every 3 years -Age 75 and olderscreening isnotrecommended unless there is cause for increased suspicion -Patient's with 1st degree relativeswith early onset colon CA should be screenedearlier than 50 Lipid screening -age 35and older unless at risk for CV disease, thenage 20(A, AAFP) Fasting glucose screening - Pts w/ sustained (treated or not) HTN of > 135/80 (B, AAFP/USPSTF), h/o hyperlipidemia or HTN (Cuban), or risk based screening (ADA) Obesity -BMI > 30should be referred for "intensive, multicomponent behavioral interventions" - but everyone should have lifestyle modifications encouraged Further recommendations can be found at the AAFP's yearly published CPS recommendations summary http://www.aafp.org/dam/AAFP/documents/patient_care/clinical_recommendations /cps-recommendations.pdf or athttp://www.uspreventiveservicestaskforce.org/ Vaccination recommendations Td/Tdap: substitute 1 time dose of Tdap w/ Td booster then Td q10 years HPV: ages 11 to 21, ideally. May vaccinate up to 26. 3 dose series @ 0, 1-2 and 6 months HepB: indicated in: non-monogamous sexually active persons, IVDA, STD pts, MSM, healthcare workers, diabetics < 60 y/o (> 60 if at risk), ESRD. 3 dose series @ 0, 1, 3 months PCV-13:immunocompromised/asplenic pts > 19 y/o. Separate from PCV-23 by at least 1 year before/ 8 wks after PCV-23: all adults > 65 y/o. Adults < 65 y/o w/ chronic lung dz, CV dz, DM, CRF, liver disease, alcoholism immunocompromised states, residents of [place]/LT[place], and [place]MOK[place]. Re-vaccinate 1 time after 5 years. PCV20 instead of PCV23/13 Shingrix:adults > 50 y/o (regardless of previous exposure) Flu:yearly in patients > 6 months. Egg free in adults 18-49. RSV: ?60 years of age and have comorbidities that put them at increased risk for severe disease Further vaccine recommendations can be found athttp://www.cdc.gov/vaccines/schedules/hcp/adult.html and there's an alek. 2.Hyperlipidemia Acute/Chronic: chronic Goal:Resolution/ control Status:stable/controlled Data: records/pt report Plan: Will check lipid panel. Recommend Med diet and 30 min of exercise 5-7 days a week. 3.Lymphoma Acute/Chronic: chronic Goal:Resolution/ control Status:stable/controlled Data: records/pt report Plan: No B symptoms. No redflags.Red flags include:overwhelming fatigue not explained by other cause, increasing or development of shortness of breath, new onset back pain not explained by other cause, new onset headaches not explained by other cause, new onset bloating/abdominal pain, unexplained weight loss, decrease appetite, earlier satiety, bleeding, skin changes. Contd follow up with onc and derm. 4.Tobacco use Acute/Chronic: chronic Goal:Resolution/ control Status:stable/controlled Data: records/pt report Plan: Will send in rxfor chantix.Will also order CT lung ca screening. 5.Impaired fasting glucose Acute/Chronic: chronic Goal:Resolution/ control Status:stable/controlled Data: records/pt report Plan: Will check hgba1c. Recommend Med diet and 30 min of exercise 5-7 days a week. 6.Body mass index [BMI] 45.0-49.9, adult Acute/Chronic: chronic Goal:Resolution/ control Status:stable/controlled Data: records/pt report Plan: Discussed pros and cons of wegovy/zepbound. Discussed side effects. Still need to participatein routine exercise and dietary modification. Would like to proceed. Will start on zepbound2.5mg weekly. Advised to call when has taken 4th dose and let us know if wants to go up to next dose. Ifable to get with insurance will follow up in 2 mo. Problem List/Past Medical History Ongoing Anxiety Arthritis of right midfoot Body mass index [BMI] 45.0-49.9, adult Cyst of skin Hallux rigidus, bilateral Hallux valgus, bilateral Heartburn Hx of breast reduction, elective Hyperlipidemia Impaired fasting glucose Lymphoma Pain in both feet Right foot pain Skin lesion Tobacco use Tobacco user Resolved B-cell lymphoma Tobacco user Tobacco user Tobacco user Procedure/Surgical History Mammogram| Service Date: 01/05/2023Laparoscopic cholecystectomy| Service Date: 08/10/2022US abdominal scan| Service Date: 2CT of chest| Service Date: 03/25/2021T of abdomen and pelvis| Service Date: 03/25/2021olonoscopy| Service Date: 1Excision| Service Date: 04/29/2020Diagnostic mammogram| Service Date: 03/28/2019Pathology biopsy report| Service Date: 03/28/2019Breast reduction, bilateral| Service Date: 07/31/2018Punch biopsy of skin| Service Date: 02/08/2018Radiation| Service Date: 04/2017Mammogram - screening| Service Date: 09/20/2016PAP test date| Service Date: 09/20/2016Punch biopsy of skin| Service Date: 02/24/2016Excision of cyst| Service Date: 01/18/2016ULTRASOUND BREAST COMPLETE| Service Date: 02/20/2011Screening mammogram of bilateral breasts| Service Date: 02/08/2011blationCone biopsyTubal ligation Medications meloxicam(meloxicam 15 mg oral tablet), 15 mg= 1 tab, PO, Daily, 3 refills omeprazole(omeprazole 20 mg oral delayed release capsule), 1 cap, PO, Daily tirzepatide(Zepbound 2.5 mg/0.5 mL subcutaneous solution), 2.5 mg, subQ, q7days, 1 refills varenicline(varenicline 0.5 mg oral tablet), See Instructions varenicline(varenicline 1 mg oral tablet), 1 mg= 1 tab, PO, bid, 1 refills venlafaxine(venlafaxine 150 mg oral capsule, extended release), [...] Vaccine Date Status influenza virus vaccine, inactivated 05/09/2024 Given influenza virus vaccine, inactivated 04/27/2022 Given influenza virus vaccine, inactivated 07/29/2021 Given influenza virus vaccine, inactivated 04/23/2020 Given pneumococcal 13-valent vaccine 04/30/2019 Given influenza virus vaccine, inactivated 04/10/2019 Given pneumococcal 13-valent vaccine 04/10/2019 Given Comments : [04/14/2019 10:31] This vaccination was not given. influenza virus vaccine, inactivated 04/29/2018 Given pneumococcal 23-valent vaccine 04/29/2018 Given Recommendations Health Maintenance Pending(in the next year) Due Adult COVID-19 Vaccination due05/09/24Unknown Frequency Adult Social Determinants of Health Screening due05/09/24Unknown Frequency Adult Tdap/Td Vaccine due05/09/24Unknown Frequency Hepatitis C Screening due05/09/24One-time only Pneumococcal Vaccine Adults and Adolescents with Chronic Illness due05/09/24One-time only Shingles Vaccine due05/09/24One-time only Due In Future Adult Influenza Vaccine not due until01/19/25and every 1year Satisfied(in the past 1 year) Satisfied Adult Influenza Vaccine on05/09/24.Satisfied by YONIS Gonzalez Kirsten Body Mass Index on05/09/24.Satisfied by YONIS Gonzalez Kirsten Breast Cancer Screening on01/18/24.Satisfied by BELLE De La Paz Lynnae Lipid Screening on05/18/23.Satisfied by Contributor_system, [employer] Electronic Signature on File Electronically Reviewed/Signed by: BABS Centeno Author Signature Dt/Tm:05/09/2024 08:59 AM Department of Family Medicine TB Patient Care team information Care Team Personnel Name: BABS Jones Tara Position: Nurse Pract - Family Med Member Role: Primary Care Provider Address: [address] [place] [id number] [place] Care Team Related Persons Name: RUBINA BAUTISTA Name: RUBINA BAUTISTA Name: RUBINA BAUTISTA
--- OUTSIDE RECORDS SUMMARY | 2024-07-06 06:20 | External Medical Summary | Continuity of Care Document ---
Author Name Unknown Organization [facility] [address] [place], [place] [address]A Address [address] [place] [address] [id number] Care Team Providers Care Associate Of Science In Nursing Name Role Phone Neva Jones Primary Care Physician [phone] [id number] Date(s): 05/13/24 - 05/13/24 [facility] [address] [facility] [address] [facility] Medicine [address] [address] Encounter Diagnosis Hallux valgus, bilateral(Discharge Diagnosis) - 04/24/24 Arthritis of right midfoot(Discharge Diagnosis) - 04/24/24 Discharge Disposition: Home or Self Care Attending Physician: DO Pierce Mehwish Referring Physician: LIBERTY Morales Christina L Allergies, Adverse Reactions, Alerts Substance Criticality Severity Reaction Reaction Severity Status aspirin unknown Active Motrin 1 hallucinations Activ e eggs 2 hives Active 1high dose 2egg yolks Assessment and Plan Extracted from: Title:Office Visit Note Author:DO Pierce Me hwish Date:05/13/24 1.Hallux valgus, bilateral 2.Arthritis of right midfoot Risks and benefits of the procedure were discussed. Patient would like to proceed with the injection, see procedure note below. Aftercare and return precautions were discussed. Follow-up with Dr. Yakov Hector as scheduled. PROCEDURE NOTE: Risks/benefits/alternatives of corticosteroid injection ofright 1ST MTP JOINTwerediscussed with patient including risks of infection, bleeding, pain during procedure, and inadequate relief of symptoms. Patient agreeable to proposed procedure. Consent was obtained [facility] protocol. The site of injection was confirmed and the patient wascorrectly identified.Color Doppler wasperformed to ensure that there were no vascular structures in the projected needle pathway. Using sterile technique, the area was cleansed with chloraprep and sterile ultrasound gel was applied to the ultrasound transducer. Under ultrasound guidance, a25 gauge needle was advanced into the1st MTP jointusing isiom-ds-bobdh approach. 0.5mL 1% Lidocaine and 20mg Depomedrol (40mg/ml)was injected and visualized entering the desired space. There were no complications. Area was hemostatic at the end of procedure and needle site was covered with a band- aid. Procedure Note: Risks/benefits/alternatives of corticosteroid injection of right foot 2nd TMT jointwerediscussed with patient including risks of infection, bleeding, pain during procedure, and inadequate relief of symptoms. Patient agreeable to proposed procedure. Consent was obtained [facility] protocol. The site of injection was confirmed and the patient wascorrectly identified. I was assisted with this procedure by our office nurse.Color Doppler wasperformed to ensure that there were no vascular structures in the projected needle pathway. Using sterile technique, the area was cleansed with chloraprep and sterile ultrasound gel was applied to the ultrasound transducer. Under ultrasound guidance, a 25 gauge needle was advanced into the right 2nd TMT joint using egbpo-cv-vvsnvikqkukca. 0.5mL 1% Lidocaine and 20mg Depomedrol (40mg/ml) was injected and visualized entering the desired space. There were no complications. Area was hemostatic at the end of procedure and needle site was covered with a band-aid. Patient tolerated the procedure well. Immunizations Given and Recorded Vaccine Date Status [...] Daily, Disp# 90 tab, Refills: 3, Pharmacy: [facility]/pharmacy #[id number] Start Date: 04/24/24 Stop Date: 04/19/25 Status: Ordered omeprazole 20 mg oral delayed release capsule Start: 03/28/24 1:10:00 PM EDT, 1 cap, PO, Daily, Disp# 90 cap, Refills: 2, Pharmacy: [facility] [id number] Start Date: 03/28/24 Status: Ordered varenicline 0.5 mg oral tablet Start: 05/09/24 8:34:00 AM EDT, See Instructions, Disp# 11 tab, take one tab po qd for 3 days then bid for 4 days., Pharmacy: [facility][id number] Start Date: 05/09/24 Status: Ordered varenicline 1 mg oral tablet Start: 05/09/24 8:33:00 AM EDT, 1 tab, PO, bid, Disp# 168 tab, Refills: 1, start after completion of 0.5mg dose, Pharmacy: [facility] #[id number] Start Date: 05/09/24 Stop Date: 10/24/24 Status: Ordered venlafaxine 150 mg oral capsule, extended release Start: 03/27/24 3:35:00 PM EDT, 1 cap, PO, Daily, Disp# 90 cap, Refills: 3, Pharmacy: [facility] [id number] Start Date: 03/27/24 Status: Ordered venlafaxine 75 mg oral capsule, extended release Start: 03/27/24 3:35:00 PM EDT, 1 cap, PO, Daily, Disp# 90 cap, Refills: 3, Pharmacy: [facility] [id number] Start Date: 03/27/24 Status: Ordered Zepbound 2.5 mg/0.5 mL subcutaneous solution Start: 05/09/24 8:19:00 AM EDT, 2.5 mg =, subQ, q7days, Disp# 1 kit, Refills: 1, Inject 2.5 mg SQ every 7 days X 4 weeks then increase to 5 mg every 7 days, Pharmacy: [facility] #[id number] Start Date: 05/09/24 Status: Ordered Mental Status 05/13/24 Barriers to Learning one year None evide nt Mandatory Health Literacy Documentation Yes Health Literacy Communication Barriers N ever Primary Language Persian Problem List Condition Confirmation Course Effective Dates [...] Hallux valgus, bilateral Discharge Diagnosis 04/24/24 Non-Specified Arthritis of right [...] and malignancy. Repeat colo in 5 years. [id number]: Sin thickening and inflammatory changes in the [...] report average six to 10 percent. 13uterine Social History Social History Type Response Smoking Status Current some day lig ht smoker Sex Female Sex Representation Female (finding) Ortho Outpt Note * DO Pierce Mehwish: PERFORM Event Display: Ortho Outpt Note Authored Date: Chief Complaint US eval and inj of right MPJ History of Present Illness Ajit a 54-year-old female who presents for ultrasound-guided injection of the first MTP joint as well as the second TMT joint. Physical Exam Right foot: There is no erythema or ecchymosis at planned injection sites. Assessment/Plan 1.Hallux valgus, bilateral 2.Arthritis of right midfoot Risks and benefits of the procedure were discussed. Patient would like to proceed with the injection, see procedure note below. Aftercare and return precautions were discussed. Follow-up with Dr. Yakov Hector as scheduled. PROCEDURE NOTE: Risks/benefits/alternatives of corticosteroid injection ofright 1ST MTP JOINTwerediscussed with patient including risks of infection, bleeding, pain during procedure, and inadequate relief of symptoms. Patient agreeable to proposed procedure. Consent was obtained [facility] protocol. The site of injection was confirmed and the patient wascorrectly identified.Color Doppler wasperformed to ensure that there were no vascular structures in the projected needle pathway. Using sterile technique, the area was cleansed with chloraprep and sterile ultrasound gel was appliedto the ultrasound transducer. Under ultrasound guidance, a25 gauge needle was advanced into the1st MTP jointusing djoch-xy-jxjxh approach. 0.5mL 1% Lidocaine and 20mg Depomedrol (40mg/ml)was injected and visualized entering the desired space. There were no complications. Area was hemostatic at the end of procedure and needle site was covered with a band-aid. Procedure Note: Risks/benefits/alternatives of corticosteroid injection of right foot 2nd TMT jointwerediscussed with patient including risks of infection, bleeding, pain during procedure, and inadequate relief of symptoms. Patient agreeable to proposed procedure. Consent was obtained [facility] protocol. The site of injection was confirmed and the patient wascorrectly identified. I was assisted with this procedure by our office nurse.Color Doppler wasperformed to ensure that there were no vascular structures in the projected needle pathway. Using sterile technique, the area was cleansed with chloraprep and sterile ultrasound gel was applied to the ultrasound transducer. Under ul trasound guidance, a 25 gauge needle was advanced into the right 2nd TMT joint using srrma-pe-fbewltnerpwrr. 0.5mL 1% Lidocaine and 20mg Depomedrol (40mg/ml) was injected and visualized entering the desired space. There were no complications. Area was hemostatic at the end of procedure and needle site was covered with a band-aid. Patient tolerated the procedure well. Problem List/Past Medical History Ongoing Anxiety Arthritis [...] mg= 1 tab, PO, Daily, 3 refills methylPREDNISolone(DEPO-Medrol 40 mg/mL injectable suspension), 20 mg= 0.5 mL, intra-articular, ONCE omeprazole(omeprazole 20 mg oral delayed release capsule), [...] the next year) Due Adult COVID-19 Vaccination due05/13/24Unknown Frequency Adult Social Determinants of Health Screening due05/13/24Unknown Frequency Adult Tdap/Td Vaccine due05/13/24Unknown Frequency Hepatitis C Screening due05/13/24One-time only Pneumococcal Vaccine Adults and Adolescents with Chronic Illness due05/13/24One-time only Shingles Vaccine due05/13/24One-time only Due In Future Adult Influenza Vaccine not due until01/19/25and every 1year Body Mass Index not due until05/10/25and every Satisfied(in the past 1 year) Satisfied Adult Influenza Vaccine on05/09/24.Satisfied by YONIS Gonzalez Kirsten Body Mass Index on05/09/24.Satisfied by YONIS Gonzalez Kirsten Breast Cancer Screening on01/18/24.Satisfied by BELLE De La Paz Lynnae Lipid Screening on05/18/23.Satisfied by Contributor_system, Contact At Once! Electronic Signature on File CC: Audrey Morales DPM [address] [facility] [address] [facility] [address] Electronically Reviewed/Signed by: Nelsy Pierce DO Author Signature Dt/Tm:05/13/2024 08:26 AM Division of Sports Medicine MM Patient Care team information Care Team Personnel Name: BABS Jones Tara Position: Nurse Pract - Family Med Member Role: Primary Care Provider Address: [address] [place] [address] [place] Care Team Related Persons Name: RUBINA BAUTISTA Name: RUBINA BAUTISTA Name: RUBINA BAUTISTA"
--- NOTE | 2024-07-06 06:41 | Electrocardiogram Report ---
Test Reason : Blood Pressure : */* mmHG Vent. Rate : 90 BPM Atrial Rate : 90 BPM P-R Int : 152 ms QRS Dur : 82 ms QT Int : 340 ms P-R-T Axes : 56 28 65 degrees QTcB Int : 415 ms Normal sinus rhythm Possible Left atrial enlargement Cannot rule out Anterior infarct , age undetermined Abnormal ECG When compared with ECG of 13-Jul-2022 08:36, No significant change was found Confirmed by Hieu Lucio ([id number]) on 07/06/2024 6:40:35 AM Referred By: Darrel Reynoso Confirmed By: Hieu Lucio
[2024-07-06 08:04] VITALS: BP 130/82
[2024-07-06 08:06] VITALS: O2SAT 93
[2024-07-06 10:35] VITALS: RESP 18
--- NOTE | 2024-07-06 13:58 | Discharge Summary ---
Date of Service July 06, 2024 Admission HPI Per Admitting Provider Nathalia Roy is a 54 year old female who presents to the ER with shortness of breath She reports her initial symptoms started on July 21 with generalized feeling unwell, sneezing, nasal congestion and productive cough with clear sputum. She felt generally terrible for about three days and went to her PCP office on . At that time she was not having the shortness of breath, more coughing and congestion. She was prescribed Augmentin, azithromycin (both antibiotics now finished), albuterol and tesslon perles. She felt better with these treatments initially. Her shortness of breath started yesterday and having increased problems sleeping. This became progressively worse despite the inhaler which was only mildly effective and short lived helped. She went to her follow up appointment today and was hypoxic therefore sent to the ER. She reports feeling much improved after steroids and nebulizers given in the ER and her chest feels much less tight and she can move air again. She is a current smoker on half a pack a day of cigarettes but no prior history of asthma or COPD. No chest pain, no recent fever or chills, nasal congestion coming and going, no sinus pain. Admission Exam Per Admitting Provider Constitutional: WD/WN, vitals as above Eyes: + anicteric sclerae; normal pupil size Respiratory: normal respiratory effort, + prolonged expiratory phase and + audible wheezes; no respiratory distress Auscultation: + wheezes (expiratory); no diminished lung sounds, no crackles and no rhonchi Cardiovascular: RRR, no murmur, no edema Gastrointestinal (Abdomen): normal bowel sounds, soft, nontender, no hepatosplenomegaly Skin: no rashes, warm and dry Psychiatric: A+Ox3, euthymic affect Principal Diagnosis Reactive airway disease, ?COPD Discharge Exam Constitutional: well-appearing, no acute distress HEENT: NCAT, no conjunctival injection CV: regular rhythm, no murmur appreciated, extremities well-perfused, no LE edema Resp: diffuse inspiratory and expiratory wheeze in b/l lung nielsen, no increased WOB GI: nondistended MSK: no gross deformities appreciated Skin: warm, dry, no rash appreciated Neuro: alert, oriented, no focal neurologic deficit appreciated Discharge Data Allergies Allergy/AdvReac Type Severity Reaction Status Date / Time egg yolk Allergy Severe Nausea, Verified 07/04/24 18:39 hives, sweating, headache aspirin Allergy Intermediate Hives Verified 07/04/24 18:39 ibuprofen AdvReac Intermediate Hallucinations Verified 07/04/24 18:39 (with high doses) Consultations 07/04/24 18:25 ED Decision to Admit Stat Hospital Course (1) Reactive airway disease with acute exacerbation: Suspect underlying COPD with smoking history, encourage smoking cessation Biofire negative although suspect initial precipitating event was viral, no pneumonia on CXR Ambulatory pulse ox significant below goal, improved at time of discharge Nebulizer treatments while inpatient Received Solu-medrol 40mg IV BID - will discharge on prednisone taper Guaifenesin 1200mg PO BID Dextromethorphan, Codeine syrup for cough suppression Sputum culture pending - prelim states moderate normal betzaida Will discharge with prednisone taper, albuterol inhaler, and codeine cough syrup Encourage outpatient PFTs Follow up by end of week with [facility] (2) Hypoxia: Aim O2 sats > 90% Secondary to reactive airway disease as above Resolved by discharge Total Time Total Time Spent Total Time Spent (In Minutes): see attending documentation Discharge Plan Discharge Items Patient Disposition: Home - Self-Care Reason For Visit: REACTIVE AIRWAY DISEASE, HYPOXIA Discharge Diagnosis: Reactive airway disease, possible COPD Activity: Resume your previous activity Activity Comment: as tolerated Non-emergency contact: Primary Care Provider Call non-emergency contact if: you have any medication questions and your symptoms worsen Follow-up/Referrals: Neva Jones [Primary Care Provider] - Diet: Regular Addtl Attending Provider Instructions: You were admitted to the hospital for shortness of breath and wheezing. You were treated with steroids and breathing treatments. During your stay you gradually improved and your oxygen level returned to normal. You will be discharged with a steroid taper, an inhaler, and cough syrup. We encourage you to continue using the flutter valve and incentive spirometer when you return home. You should also wear a mask at work in areas that are particularly bravo or have chemical irritants. A discharge summary will be sent to your primary care physician to ensure continuity of care. Please bring this discharge summary with you to your next office appointment so that your provider can review it at that time. Follow-up appointments: Make a follow-up appointment with your PCP within the next week. It is very important that you follow up with them shortly after discharge from the hospital. Keep all your follow-up appointments as already scheduled. If you cannot make an appointment, notify your provider. Medications: Your medication list has been reviewed and reconciled upon discharge to ensure accuracy and continuity of care. An updated list of all your medications is included with your hospital discharge paperwork. Please review this list closely, and make note of any changes. We sent a new medication called prednisone to your pharmacy. Take prednisone 5 tablets for two days, 4 tablets for two days, 3 tablets for two days, 2 tablets for two days, and 1 tablet for two days We sent a new medication called albuterol to your pharmacy. Take albuterol 2 puffs every 4-6 hours as needed for shortness of breath or wheezing. We sent a new medication called codeine cough syrup to your pharmacy. Take codeine following instructions on bottle every 4-6hrs for cough. Do not use while driving or working. If you have any issues filling these prescriptions, please call [phone] and ask to leave a message for Dr. Loki Rebolledo. Take your medications as instructed; do not skip a dose of your medicines. Make sure all of your doctors know every medicine you are taking (including ejlp-bxa-lvqzaur medicines, vitamins, and supplements). Call your primary care provider before taking any new medicines (including goin-tar-qxlutgn medicines, vitamins, and supplements), because some of these may interact with your current medications, or may make your symptoms worse. Tell your primary care provider if you cannot afford your medications. CONTACT YOUR PRIMARY CARE PROVIDER if you experience any of the following: Increased shortness of breath Increased wheezing Difficulty following your treatment plan, or difficulty taking medications CALL 911 OR GO TO THE EMERGENCY DEPARTMENT if you experience any of the following: Sudden, severe abdominal pain or nausea/vomiting Severe chest pain, or chest pain that radiates (moves) to your jaw or arm Sudden, severe shortness of breath or difficulty breathing Thank you for allowing us to participate in your care. Pending Studies at Discharge: Yes Studies:: final results of sputum culture Stand-Alone Forms: My [employer], Work/School Release, Smoking Cessation Medications and DC Order Prescriptions: New codeine-guaifenesin 10-100 mg/5 mL Liquid 10 ml PO Q6H PRN (Reason: cough) Qty: 120 0RF prednisone 10 mg tablet 10 mg PO DIRECTED Qty: 30 0RF Rx Instructions: 5 tabs x 2 days, 4 tabs x 2 days, 3 tabs x 2 days, 2 tabs x 2 days, 1 tab x 2 days albuterol sulfate 90 mcg/actuation HFA aerosol inhaler 2 inh inhalation .Q4-6H PRN (Reason: shortness of breath or wheezing) Qty: 6.7 0RF dextromethorphan polistirex [Delsym 12 hour] 30 mg/5 mL Suspension,Extended Rel 12 Hr 30 mg PO Q12H PRNQty: 0 0RF guaifenesin [Mucinex] 600 mg Tablet Extended Release 12hr 1,200 mg PO Q12 Qty: 0 0RF Continued omeprazole 20 mg capsule,delayed release(DR/EC) 20 mg PO HS venlafaxine 75 mg capsule,extended release 24hr 75 mg PO HS meloxicam 15 mg tablet 15 mg PO HS venlafaxine 150 mg capsule,extended release 24hr 150 mg PO HS Zepbound 2.5 mg/0.5 mL pen injector 2.5 mg SUBCUT WK Rx Instructions: SUNDAY Discharge Orders: Discharge Order (Routine); Ordered 07/06/24 Ordered By: Loki De Santiago/Other Patient Handouts: Discharge Instructions: COPD Admission Data Admit Date/Time: 07/04/24 20:34 Attending Provider: Sania Ojeda Admit Provider: Kaiden Sanchez Primary Care Provider: Neva Jones Other Providers: Kaiden Sanchez Other Interventions: Discharge Summary Assessment (RN) Last Done: 07/06/24 14:52 Supervising Physician Co-Signing Physician Notes Attending Physician Supervision Note: I independently interviewed and examined the patient and verified the ventura history and physical, reviewed labs and image studies and agree with findings and care plan noted above. Tobacco use disorder - ~ 15 ppd. Encourage quitting. Also works in bravo work environment around lumbar. Could consider PFT. Resident Activity Tracking Resident Involvement: Resident Care Provided Care Provided: Adult Hospital Medicine
[2024-07-06 14:53] VITALS: PULSE 74
== END 2024-07-06 15:18 | disposition home or self-care (01) | DRG 191 ==
LOC: SUATTDRO → ED 15:58 → 3W 20:34 → SUATTDRO 20:34 → 3W 21:55